=== PATIENT | male | born 1935 | race Caucasian/White ===

== ENCOUNTER → 2016-09-06 | Outpatient (CLI) | payer OTHER ==
[~2016-09-06] MED LIST: AMLO-114 PO; ASPI81TA28 PO; ATEN-173 PO; MULT-190 PO; PRD20 PO
[2016-09-06 19:17] LABS: BLOOD UREA NITROGEN 65 mg/dl (7-18); BUN/CREATININE RATIO 23.3 (10-20); CARBON DIOXIDE 27 mmol/L (21-32); CHLORIDE 105 mmol/L (98-107); GLUCOSE 103 mg/dl (70-99); PHOSPHORUS 3.4 mg/dl (2.5-4.9); SODIUM 140 mmol/L (136-145)
== END | disposition home or self-care (01) ==
LOC: C.LABMFLN 14:54
PROVIDERS: ATTEND Family Medicine
DX: M79.606 Pain in leg, unspecified (principal); N18.4 Chronic kidney disease, stage 4 (severe)

== ENCOUNTER → 2016-12-07 | Outpatient (CLI) | payer OTHER ==
[2016-12-07 13:57] LABS: BLOOD UREA NITROGEN 60 mg/dl (7-18); BUN/CREATININE RATIO 21.4 (10-20); CALCIUM 9.6 mg/dl (8.5-10.1); CARBON DIOXIDE 27 mmol/L (21-32); CHLORIDE 108 mmol/L (98-107); GLUCOSE 107 mg/dl (70-99); POTASSIUM 4.4 mmol/L (3.5-5.1); SODIUM 142 mmol/L (136-145)
[2016-12-07 13:58] LABS: PHOSPHORUS 3.3 mg/dl (2.5-4.9)
== END | disposition home or self-care (01) ==
LOC: C.LABMFLN 08:43
PROVIDERS: ATTEND Family Medicine
DX: N18.4 Chronic kidney disease, stage 4 (severe) (principal)

== ENCOUNTER → 2017-04-04 | Outpatient (CLI) | payer OTHER ==
[2017-04-04 13:07] LABS: BASO % 0.5 %; BASO ABS # 0.03 K/uL (0-0.2); COMPLETE YES; EOS % 3.5 %; HEMATOCRIT 36.6 % (42-52); IG% 0.3 %; LYMPH % 25.9 %; LYMPH ABS # 1.54 K/uL (1.2-3.4); MEAN CELL VOLUME 92.4 fL (80-100); MEAN CORPUSCULAR HEMOGLOBIN 30.6 pg (25-34); MEAN CORPUSCULAR HGB CONC 33.1 g/dl (32-36); MEAN PLATELET VOLUME 11.9 fL (7.4-10.4); MONO % 8.4 %; NEUT % 61.4 %; PLATELET COUNT 136 K/uL (130-400); RED BLOOD COUNT 3.96 M/uL (4.7-6.1); WHITE BLOOD COUNT 5.95 K/uL (4.8-10.8)
[2017-04-04 13:38] LABS: ALT/SGPT 56 U/L (12-78); AST/SGOT 23 U/L (15-37); BLOOD UREA NITROGEN 53 mg/dl (7-18); BUN/CREATININE RATIO 20.4 (10-20); CALCIUM 8.7 mg/dl (8.5-10.1); CARBON DIOXIDE 28 mmol/L (21-32); CHLORIDE 107 mmol/L (98-107); CREATININE 2.58 mg/dl (0.60-1.40); GLUCOSE 95 mg/dl (70-99); POTASSIUM 4.3 mmol/L (3.5-5.1); SODIUM 143 mmol/L (136-145)
[2017-04-04 13:43] LABS: ALKALINE PHOSPHATASE 57 U/L (45-117); CHOLESTEROL 144 mg/dl (0-200); CHOLESTEROL/HDL RATIO 3.6; HDL CHOLESTEROL 40 mg/dl; LDL CHOLESTEROL CALCULATED 65 mg/dl; TRIGLYCERIDES 193 mg/dl (0-150); VERY LOW DENSITY LIPOPROT CALC 39 mg/dl
== END | disposition home or self-care (01) ==
LOC: C.LABMFLN 08:15
PROVIDERS: ATTEND Family Medicine
DX: I12.9 Hypertensive chronic kidney disease with stage 1 through stage 4 chronic kidney disease, or unspecified chronic kidney disease (principal); N18.4 Chronic kidney disease, stage 4 (severe); E78.5 Hyperlipidemia, unspecified

== ENCOUNTER → 2017-06-02 | Outpatient (CLI) | payer OTHER ==
[2017-06-02 18:16] LABS: ALBUMIN 3.4 gm/dl (3.4-5.0); BASO % 0.3 %; BASO ABS # 0.02 K/uL (0-0.2); BLOOD UREA NITROGEN 50 mg/dl (7-18); CALCIUM 9.5 mg/dl (8.5-10.1); CARBON DIOXIDE 30 mmol/L (21-32); CREATININE 2.85 mg/dl (0.60-1.40); EOS % 2.7 %; EOS ABS # 0.19 K/uL (0-0.5); GLUCOSE 104 mg/dl (70-99); HEMATOCRIT 38.4 % (42-52); HEMOGLOBIN 12.4 g/dL (14.0-18.0); IG# 0.02 K/uL (0.00-0.02); LYMPH % 18.1 %; LYMPH ABS # 1.25 K/uL (1.2-3.4); MEAN CELL VOLUME 93.2 fL (80-100); MEAN CORPUSCULAR HEMOGLOBIN 30.1 pg (25-34); MEAN CORPUSCULAR HGB CONC 32.3 g/dl (32-36); MEAN PLATELET VOLUME 11.9 fL (7.4-10.4); MONO % 7.7 %; MONO ABS # 0.53 K/uL (0.11-0.59); NEUT % 70.9 %; PLATELET COUNT 158 K/uL (130-400); POTASSIUM 4.3 mmol/L (3.5-5.1); RED CELL DISTRIBUTION WIDTH CV 14.8 % (11.5-14.5); RED CELL DISTRIBUTION WIDTH SD 49.9 fL (36.4-46.3); SODIUM 141 mmol/L (136-145); WHITE BLOOD COUNT 6.91 K/uL (4.8-10.8)
[2017-06-02 18:30] LABS: PHOSPHORUS 3.8 mg/dl (2.5-4.9)
== END | disposition home or self-care (01) ==
LOC: C.LABMFLN 11:15
PROVIDERS: ATTEND Family Medicine
DX: R41.3 Other amnesia (principal); N18.4 Chronic kidney disease, stage 4 (severe)

== ENCOUNTER → 2017-09-02 | Outpatient (CLI) | payer OTHER ==
[2017-09-02 18:09] LABS: BASO % 0.3 %; BASO ABS # 0.02 K/uL (0-0.2); EOS ABS # 0.07 K/uL (0-0.5); HEMATOCRIT 33.6 % (42-52); IG# 0.02 K/uL (0.00-0.02); LYMPH % 14.2 %; LYMPH ABS # 0.99 K/uL (1.2-3.4); MEAN CELL VOLUME 91.3 fL (80-100); MEAN CORPUSCULAR HEMOGLOBIN 29.9 pg (25-34); MEAN CORPUSCULAR HGB CONC 32.7 g/dl (32-36); MONO % 5.8 %; NEUT % 78.4 %; NEUT ABS # 5.45 K/uL (1.4-6.5); PLATELET COUNT 162 K/uL (130-400); RED CELL DISTRIBUTION WIDTH CV 14.8 % (11.5-14.5); RED CELL DISTRIBUTION WIDTH SD 49.7 fL (36.4-46.3); WHITE BLOOD COUNT 6.95 K/uL (4.8-10.8)
[2017-09-02 18:32] LABS: ALBUMIN 3.2 gm/dl (3.4-5.0); BLOOD UREA NITROGEN 75 mg/dl (7-18); CALCIUM 8.6 mg/dl (8.5-10.1); CARBON DIOXIDE 23 mmol/L (21-32); CREATININE 3.33 mg/dl (0.60-1.40); GLUCOSE 95 mg/dl (70-99); POTASSIUM 4.3 mmol/L (3.5-5.1); SODIUM 138 mmol/L (136-145)
[2017-09-02 18:33] LABS: PHOSPHORUS 4.3 mg/dl (2.5-4.9)
== END ==
LOC: C.LABMFLN 15:20
PROVIDERS: ATTEND Family Medicine
DX: M31.6 Other giant cell arteritis (principal); E53.8 Deficiency of other specified B group vitamins; N18.4 Chronic kidney disease, stage 4 (severe)

== ENCOUNTER → 2017-12-22 | Outpatient (CLI) | payer OTHER ==
[~2017-12-22] MED LIST changes: -AMLO-114 PO; +AMLO10TA3 PO
[2017-12-22 18:25] LABS: ALBUMIN 3.3 gm/dl (3.4-5.0); BLOOD UREA NITROGEN 59 mg/dl (7-18); CALCIUM 8.3 mg/dl (8.5-10.1); CARBON DIOXIDE 22 mmol/L (21-32); GLUCOSE 102 mg/dl (70-99); PHOSPHORUS 3.6 mg/dl (2.5-4.9); POTASSIUM 4.2 mmol/L (3.5-5.1); SODIUM 139 mmol/L (136-145)
== END | disposition home or self-care (01) ==
LOC: C.LABMFLN 11:14
PROVIDERS: ATTEND Family Medicine
DX: N18.4 Chronic kidney disease, stage 4 (severe) (principal)

== ENCOUNTER 2021-08-06 08:29 | Inpatient (IN) ==
--- NOTE | 2021-07-02 12:04 | PAT Medication Instructions ---
Medication Instructions Date of Service July 02, 2021 Home Medications Medication Instructions Recorded albuterol sulfate 90 mcg/actuation 2 puffs INHALATION Q4H PRN #18 gm 12/12/18 aerosol inhaler prednisone 5 mg tablet 5 mg PO QAM #90 tab 12/12/18 albuterol sulfate 90 mcg/actuation aerosol inhaler 2 puffs INHALATION Q4H PRN prednisone 5 mg tablet 5 mg PO QAM aspirin 81 mg chewable tablet 81 mg PO HS carvedilol 3.125 mg tablet 3.125 mg PO BID acetaminophen 500 mg tablet 1,000 mg PO Q6H PRN calcium acetate(phosphat bind) 667 mg capsule 667 mg PO UD multivitamin with minerals 1 tab PO BID nifedipine 60 mg tablet,extended release 60 mg PO QAM rosuvastatin 5 mg tablet 5 mg PO QAM vitamin B complex and vitamin C no.20-folic acid 1 mg capsule (Triphrocaps) 1 cap PO QAM Continue as directed prednisone 5 mg tablet 5 mg PO QAM DO NOT take the morning of surgery calcium acetate(phosphat bind) 667 mg capsule 667 mg PO UD multivitamin with minerals 1 tab PO BID vitamin B complex and vitamin C no.20-folic acid 1 mg capsule (Triphrocaps) 1 cap PO QAM Take morning of surgery With a small sip of water, OTHERWISE NOTHING TO EAT OR DRINK AFTER MIDNIGHT: albuterol sulfate 90 mcg/actuation aerosol inhaler 2 puffs INHALATION Q4H PRN (use if needed; please bring with you to hospital day of surgery if possible) carvedilol 3.125 mg tablet 3.125 mg PO BID acetaminophen 500 mg tablet 1,000 mg PO Q6H PRN(okay to take up to 4 hours prior to surgery if needed) nifedipine 60 mg tablet,extended release 60 mg PO QAM rosuvastatin 5 mg tablet 5 mg PO QAM Take evening before surgery albuterol sulfate 90 mcg/actuation aerosol inhaler 2 puffs INHALATION Q4H PRN(if needed) aspirin 81 mg chewable tablet 81 mg PO HS (unless surgeon directed otherwise) carvedilol 3.125 mg tablet 3.125 mg PO BID acetaminophen 500 mg tablet 1,000 mg PO Q6H PRN(if needed) multivitamin with minerals 1 tab PO BID Other Notes If you have any questions please call us at [phone] or [phone] or [phone] or [phone]
--- NOTE | 2021-07-07 10:37 | Anesthesiology Consultation ---
Date of Service July 07, 2021 Assessment & Plan (1) Encounter for pre-operative examination: Chart Review Chart Review: Acceptable Risk for Surgery (pending PCP office visit 07/21/21, response re:anemia and preop Covid testing results ) and Patient seen in Pre Admission Testing Surgery date was changed to 08/06/21 (non dialysis day)- surgery will be on a - Awaiting PCP appt scheduled 07/21/21 (also wrote note to PCP regarding anemia) -Check PRP stat AM of surgery (pt on dialysis) -Due to comorbidities- patient is NOT a Same Day Joint candidate Has left a port in place - had been having issues with left AVF- left UE restriction Per PAT appt on 07/07/21, patient denies any recent travel or large group activities. No known Covid positive exposures or Covid related symptoms. No known Covid infection in the past 90 days. Pt is vaccinated for Covid. Preop Covid testing will need done 2-4 days prior to surgery = will await results. Educated on importance of self quarantining, social distancing and wearing mask in public for the patient one week prior to surgery and after Covid testing done Pt last seen by cardio 11/13/20= pt seen for routine follow up. History of asymptomatic frequent PVCs. History of Holter monitor that demonstrated approximately 8-9% of all beats were PVCs. Had echo that showed structurally normal heart. Been doing well with exception to fatigue. Frequent PVCsdiscussed the benign nature of these. Had an echo and is instructed normal heart. Patient is to be seen on a yearly basis. Left arm AVF 07/01/18= Done under MAC History Surgery Operation Date: 08/06/21 09:10 Proposed Procedures p Left Total Knee Arthroplasty - Black Figueredo MD Height/Weight Height: 5 ft 9 in Weight: 79.3 kg Allergies Allergy/AdvReac Type Severity Reaction Status Date / Time allopurinol Allergy Mild pain in Verified 07/01/21 09:43 joints losartan Allergy Mild impaired Verified 07/01/21 09:43 renal function hydralazine Allergy Unknown Unknown Verified 07/01/21 09:43 Medications Home Medications Medication Instructions Recorded Confirmed Last Taken albuterol sulfate 90 mcg/actuation 2 puffs INHALATION Q4H PRN #18 gm 12/12/18 07/01/21 Unknown aerosol inhaler prednisone 5 mg tablet 5 mg PO QAM #90 tab 12/12/18 07/01/21 Unknown aspirin 81 mg chewable tablet 81 mg PO HS tab 12/19/18 07/01/21 Unknown carvedilol 3.125 mg tablet 3.125 mg PO BID tab 07/15/20 07/01/21 Unknown acetaminophen 500 mg tablet 1,000 mg PO Q6H PRN 07/01/21 07/01/21 Unknown calcium acetate(phosphat bind) 667 667 mg PO UD 07/01/21 07/01/21 Unknown mg capsule multivitamin with minerals 1 tab PO BID 07/01/21 07/01/21 Unknown nifedipine 60 mg tablet,extended 60 mg PO QAM 07/01/21 07/01/21 Unknown release rosuvastatin 5 mg tablet 5 mg PO QAM 07/01/21 07/01/21 Unknown vitamin B complex and vitamin C 1 cap PO QAM 07/01/21 07/01/21 Unknown no.20-folic acid 1 mg capsule (Triphrocaps) Past Medical History Medical History (Updated 07/07/21 @ 17:33 by Kathleen Acosta PA-C) Anemia Balance problems Mild -due to old age per patient No walking device needed. No recent falls Deep vein thrombosis Many years ago- DVT and PE- specific unknown - currently takes aspirin-NO ISSUES SINCE Enlarged prostate with lower urinary tract symptoms (LUTS) ESRD (end stage renal disease) DIALYSIS TUESDAY/TUESDAY/TUESDAY [facility] Glaucoma Follows with eye doctor routinely Gout No recent issues Hearing loss NO AIDS Hyperlipidemia Hypertension Macular degeneration Memory difficulty Due to old age per patient- mild Multiple pulmonary nodules STABLE PER PT/SPOUSE Nephrolithiasis No recent issues Pulmonary embolism Many years ago - no issues since- on ASA PVCs (premature ventricular contractions) Frequent- follows with S Cardio Temporal arteritis HX- no recent issues Exercise / Class Metabolic Activity II 4-5 Yardwork/Stairs/Walk up hill (one flight of stairs - no chest pain or SOB - goes slow ) Past Family History Family History Unknown Hypertension Father Coronary heart disease Myocardial infarction Denies family history of Ovarian cancer Prostate cancer Breast cancer Colorectal cancer Past Surgical History Surgical History AV fistula LLE History of cataract surgery right and left History of colonoscopy History of endoscopic sinus surgery History of temporal artery biopsy S/P inguinal hernia repair Past Anesthesia History No Hx of Anesthesia Complications and No Family Hx of Anesthesia Complications History of PONV No Hx of PONV and No Hx of Motion Sickness Social History Smoking Status: Never smoker Do You Dip or Chew Tobacco: No Hx Alcohol Use: Yes Alcohol type: beer alcohol intake frequency: holidays/special occasions only Hx Substance Use: No substance use type: does not use Review of Systems Hx occ snoring. No witnessed apnea. No hx of sleep study Patient denies chest pain, shortness of breath, dyspnea on exertion, reflux, cough, wheezing, palpitations. No hx of seizures, stroke, NC. No hx of blood transfusions Physical Exam Vital Signs VITALS BP 175/84 (usually in 150s systolically per patient) P 61 TEMP 98.0 SP02 97% RESP 16 Constitutional no acute distress ENMT Mouth: no TMJ clicking Thyromental Distance: > or= 3.5 Finger Breadths (3.5) Mallampati Class: II (smaller airway ) Missing molars and side teeth Neck + limited neck extension (significant ) Respiratory normal respiratory effort; no respiratory distress Auscultation: lungs clear to auscultation bilaterally; no wheezes Cardiovascular Rate/Rhythm: regular rate and regular rhythm Heart Sounds: no murmur Vessels: no carotid bruit Musculoskeletal Spine: no pain with cervical ROM Extremities: extremities normal to inspection Psychiatric Orientation: alert Lab Results Anesthesia Preop Results Results Anesthesia Widget: WBC 6.54 K/uL (4.8-10.8) 07/07/21 Hgb 9.8 g/dL (14.0-18.0) L 07/07/21 Hct 30.8 % (42-52) L 07/07/21 Plt 151 K/uL (130-400) 07/07/21 Na 141 mmol/L (136-145) 07/07/21 K 3.8 mmol/L (3.5-5.1) 07/07/21 Cl 105 mmol/L (98-107) 07/07/21 CO2 26 mmol/L (21-32) 07/07/21 BUN 39 mg/dl (6-23) H 02/22/22 Creat 4.79 mg/dl (0.6-1.4) H* 07/07/21 Glucose Level 82 mg/dl (70-99(Fasting)) 07/07/21 PT 10.3 Seconds (9.0-12.0) 07/07/21 PTT 28.8 Seconds (21.0-31.0) 07/07/21 INR 1.0 (0.9-1.1) 07/07/21 Blood Type O Positive 07/07/21 Antibody Screen NEGATIVE 07/07/21 Lab Comments: Pt on dialysis Did write note to PCP re: anemia; also informed surgeon's office Testing Electrocardiogram Date: 07/07/21 Findings: + NSR @ (60bpm) Normal EKG per cardio. Chest X-Ray Date: 07/02/21 Findings: + NAD and + cardiomegaly (moderate) Echocardiogram Date: 09/26/17 EF: 65% LV Function: normal RWMA: + none Other Findings: + LVH (Mild/concentric) and + diastolic dysfunction (Grade 1) LA moderately enlarged. Mild AR. Mild TR. Proximal ascending thoracic aorta is mildly enlarged. It measures 4.2cm. Compared to prior study August 09, 2016- no significant change
--- NOTE | 2021-08-03 01:02 | History and Physical Report ---
CHIEF COMPLAINT: Bilateral knee pain and discomfort, left side greater than right. HISTORY OF PRESENT ILLNESS: The patient is an 86-year-old gentleman with end-stage renal disease, wh o has got a long history of bilateral knee pain and discomfort. We have been treating him over the y ears with injections, which have become less successful over time. He has had both steroid shots and viscosupplementation. He is having trouble getting around due to his knee pain. The left knee is a bit worse than the right. He cannot walk more than a couple blocks. He is trying to maintain an ac tive lifestyle and cannot do it. He would like to have his knees fixed. PAST MEDICAL HISTORY: Significant for, 1. End-stage renal disease, on dialysis. 2. Gout. 3. Elevated cholesterol. 4. Hypertension. 5. Macular degeneration. 6. Temporal arteritis. PAST SURGICAL HISTORY: Includes, 1. AV fistula placement. 2. Cataract surgery. 3. Biopsy from the temporal artery. 4. Inguinal hernia repair. ALLERGIES: ALLOPURINOL, LOSARTAN, HYDRALAZINE. SOCIAL HISTORY: An 86-year-old male. He is . He lives in [place]. He is retired. He was a teacher in the past. He does not smoke. FAMILY HISTORY: Noncontributory. REVIEW OF SYSTEMS: Significant for end-stage renal disease, on dialysis. No history of DVT or PE. No known bleeding problems. No chest pain or shortness of breath. PHYSICAL EXAMINATION: GENERAL: Shows a pleasant, thin, healthy-appearing, elderly male. He looks younger than his stated age. HEENT: Benign. NECK: Supple. No lymphadenopathy. LUNGS: Clear to auscultation. HEART: Regular rate and rhythm. ABDOMEN: Soft, nontender, nondistended. EXTREMITIES: Grossly neurovascularly intact except as follows: Examination of the left knee reveals a patient who ambulates with a little bit of a limp. He has got a varus deformity to his knee with a little bit of a varus thrust. His range of motion is about 10 degrees short of full extension to 1 15 degrees of flexion. Small knee effusion. No pain with hip motion. Examination of the right knee reveals a similar varus deformity. He is tender medially. Small knee effusion. Range is 5-120. N o instability. X-RAYS: X-rays of the left knee reviewed. It shows advanced left knee DJD. He has got complete los s of his medial joint space. He has got subchondral sclerosis. He has some tibiofemoral subluxation . The left knee is just slightly worse than the right, but very similar. He has started to destroy some of the bone on the medial side of his tibia on both sides. ASSESSMENT: An 86-year-old male with end-stage renal disease with advanced bilateral knee degenerati ve joint disease. He has failed conservative treatment. He would like to proceed with left knee rep lacement. PLAN: Will proceed with left knee replacement. The risks and benefits of this procedure were explai jarrell to the patient to include, but not limited to, DVT, PE, , infection, neurological injury, va scular injury, bleeding problems, pain, limited range of motion, stiffness, failure to relieve him sy mptoms, incomplete relief of symptoms, need for further surgery in the future, etc. The patient unde rstands and desires to proceed. Informed consent was obtained. We will likely put a little bit of vancomycin in the cement due to his medical comorbidities. He is planning to be discharged to home using [facility] home health program. Will need to work around his dialysis. Job ID: [id number]
[~2021-08-06 08:29] MED LIST changes: +ACETAMINOPHEN 500 MG TAB PO SCH; -AMLO10TA3 PO; -ASPI81TA28 PO; -ATEN-173 PO; +BUPIVACAINE 0.5 % 5 MG/1 ML PF 10ML VIAL ONE; +BUPIVACAINE LIPOSOME/PF 266 MG, BUPIVACAINE/EPINEPHRINE 50 ML, SODIUM CHLORIDE 0.9% 30 ... INFIL SCH; +FAMOTIDINE 20 MG TAB PO SCH; +GABAPENTIN 300 MG CAP PO SCH; +LR 60ML/HR IV SCH; +METOCLOPRAMIDE HCL 10 MG TABLET PO SCH; -MULT-190 PO; -PRD20 PO; +SODIUM CHLORIDE 0.9% 1000ML IV SCH; +TRANEXAMIC ACID 1,000 MG **IV Intra-op IV SCH; +ceFAZolin 2000MG 2,000 MG/15 ML SYR IV SCH
--- NOTE | 2021-08-06 08:56 | History & Physical Bridge Note ---
Date of Service August 06, 2021 History & Physical Bridge Note I have examined the patient, reviewed the History & Physical and in the interval since the performance of the History & Physical I have noted the following changes of clinical significance: no changes noted
[2021-08-06 09:34] LABS: Basophils # (auto) 0.02 K/uL (0-0.2); Basophils % (auto) 0.3 %; Eosinophils # (auto) 0.14 K/uL (0-0.5); Eosinophils % (auto) 2.3 %; Hematocrit (blood only) 29.1 % (42-52); Hemoglobin 9.4 g/dL (14.0-18.0); Immature Granulocytes # (auto) 0.01 K/uL (0.00-0.02); Immature Granulocytes % (auto) 0.2 %; Lymphocytes # (auto) 1.68 K/uL (1.2-3.4); Lymphocytes % (auto) 27.1 %; Mean Corpuscular Hemoglobin 32.8 pg (25-34); Mean Corpuscular Volume 101.4 fL (80-100); Mean Platelet Volume 11.1 fL (7.4-10.4); Monocytes % (auto) 9.7 %; Neutrophils # (auto) 3.76 K/uL (1.4-6.5); Neutrophils % (auto) 60.4 %; Platelet Count 144 K/uL (130-400); RDW Coefficient of Variation 13.8 % (11.5-14.5); RDW Standard Deviation 51.4 fL (36.4-46.3); Red Blood Count 2.87 M/uL (4.7-6.1); White Blood Count 6.21 K/uL (4.8-10.8)
[2021-08-06] MEDS ORDERED: fentaNYL citrate 100 MCG/2 ML VIAL ONE (09:36)
[2021-08-06] MEDS ORDERED: MIDAZOLAM HCL 1 MG/ML 2ML VIAL ONE (09:37)
[2021-08-06 09:55] LABS: Mean Corpuscular Hgb Conc 32.3 g/dL (32-36)
[2021-08-06 10:20] LABS: BUN Creatinine Ratio 5.9 (10-20); Calcium 7.9 mg/dl (8.5-10.1); Creatinine Clr Calc Pharmacy 12.1 ml/min; Est GFR (African American) 12.8 ml/min
[2021-08-06] MEDS ORDERED: ONDANSETRON INJ 2 MG/ML 2 ML VIAL IV PRN ×2 (11:01→14:28)
[2021-08-06] MEDS ORDERED: ATROPINE SULFATE 0.1 MG/ML 10ML SYR IV PRN (11:01)
[2021-08-06] MEDS ORDERED: ePHEDrine sulfate 50 MG/ML AMP IV PRN (11:01)
[2021-08-06] MEDS ORDERED: fentaNYL citrate 100 MCG/2 ML VIAL IV PRN (11:01)
[2021-08-06] MEDS ORDERED: SODIUM CHLORIDE 0.9% PF 50 ML VIAL ONE (11:24)
[2021-08-06] MEDS ORDERED: BUPIVACAINE/EPINEPHRINE 0.25% 1:200,000 30 ML VIAL ONE (11:24)
[2021-08-06] MEDS ORDERED: BUPIVACAINE LIPOSOME 1.3% 266 MG/20 ML VIAL ONE (11:25)
[2021-08-06] MEDS ORDERED: ONDANSETRON INJ 2 MG/ML 2 ML VIAL ONE (11:57)
[2021-08-06] MEDS ORDERED: PROPOFOL IV EMULSION 10 MG/ML 20 ML VIAL IV ONE (11:57)
[2021-08-06] MEDS ORDERED: ePHEDrine sulfate 50 MG/ML SYR ONE (13:01)
--- NOTE | 2021-08-06 13:33 | Operative Report ---
PG Post Operative Report Pre & Post Diagnosis Operation Date: 08/06/21 10:55 Pre-Op Diagnosis: Left knee degenerative joint disease Post-Op Diagnosis: Left knee degenerative joint disease I identified the patient and participated in the time-out.: Yes Procedure Operation Date: 08/06/21 10:55 Actual Procedures p Left Total Knee Replacement(Left) - Black Figueredo MD Surgeon Black Figueredo MD Crusher Loader Operator Bryce Folres PA-C Estimated Blood Loss 50 Findings Consistent with Post-Op Diagnosis Operative findings revealed advanced left knee tricompartment DJD. He had extensive grade 4 [id number] disease in all 3 compartments most severe in the medial side. Chronic ACL deficiency. Moderate-sized knee joint effusion. Fluids 200 cc Specimens Left knee sent for pathology Anesthesia Type Spinal MAC Complications none Disposition Accompanied Patient To Recovery: No Indications Patient is a 86-year-old fairly active gentleman has had a long history of bilateral knee pain discomfort. I been treating him over the years with injections which became less successful over time. He is having trouble having a degree of quality life due to his pain and elected to see with left total knee arthroplasty. Description of Procedure Operative implants consisted of: 1. Biomet Vanguard size 70 left posterior stabilized femoral component 2. Biomet size 75 tibial tray. 3. 12 mm posterior stabilized polyethylene insert. 4. 31 x 8 all polypatella. The patient was taken to the operating, identified, placed on the operating table supine position protectors were properly padded IV antibiotics tried by anesthesia team. A Crowell catheter was placed in sterile fashion. Left thigh tent was then placed. Left lower extremities and prepped and draped in usual sterile fashion. The left leg was elevated exsanguinated with use of an Esmarch and the tourniquet was set at 300 mmHg. An anterior approach to the left knee was then performed through longitudinal incision centered over the patella. Sharp dissection got through subcutaneous tissue down below the extensor mechanism. A medial parapatellar arthrotomy incision was made. Some subperiosteal dissection was carried out medially. The fat pad was resected beneath patella tendon. Lateral patellofemoral ligament was released. Patella subluxated laterally and the knee was flexed. The osteophyte taken off distal femur. The ACL and PCL were then released and distal femur. The ACL was absent. The tibia subluxated anteriorly. The external tibial alignment jig was then placed the interface the tibia and adjusted 14 mm medially. Proximal tibial cut was made essentially flush with the most deficient aspect medial tibial plateau. The tibia sized to a size 75. Attention drawn the femur. The distal femur during the sharp drop with intramedullary canal was suction. A left six 6 degree valgus cutting guide was placed. Distal femoral cutting block was pinned in place. Distal femoral cut was made to take an additional 3 mm of bone off distal femur. The femur was then sized to a size 70. The AP cutting block was pinned parallel to the epicondylar axis which was 4 degrees of external rotation. Anterior cut, anterior chamfer, posterior cut, posterior chamfer cuts were made. The box cutting guide was placed in just a slight lateral box cut was made. The knee was flexed. The remnants of the medial and lateral menisci were excised. The osteophytes taken off the posterior aspect of the femur. A trial femoral component was placed. The tibial tray was pinned in maximum external rotation and the drill and stem punch used to create defect in proximal tibia for the tibial tray. Knee was then trialed and the 12 mm insert fit most appropriately. Attention drawn the patella. The patella was cleaned of all soft tissues. Patella thickness measured 23 mm in thickness was cut down to the 14. Was sized to a size 31 patella. The lug holes were drilled for the 31 patella. The lateral osteophyte is moved. Patella button was placed. Knee was taken through range of motion patella tracked nicely with no thumbs test. Attention drawn to placing permanent components. All trial components were removed. Bone plug was placed in the distal femur limit blood loss. Double batch [place] G cement was mixed. A Biomet Vanguard size 70 left posterior stabilized femoral component, size 75 tibial tray, 12 mm posterior stabilized polyethylene insert, and a 31 x 8 all polypatella then cemented in place. The knee was brought out into full extension until cement hardened. A final cement check was then performed. The pericapsular tissue tissues were injected with total of 100 cc of combination of 20 cc of Exparel, 30 cc normal saline, 50 cc of quarter percent Marcaine with epinephrine. Patient did receive 1 g tranexamic acid. The tourniquet was then let down for turn time 55 minutes. Hemostasis reduced electrocautery. Extensor mechanism closed with combination 1 PDS suture #1 Vicryl suture in [id number] fashion. Extensor mechanism checked found to be intact with subcutaneous tissue then closed with 2 Dexon suture in a buried interrupted fashion skin was closed skin ilia. Leg was then cleaned and dried a sterile dressing was Xeroform, 4 x 4's, sterile cast padding, Ryan bandage were applied. Patient was then transferred to the recovery room in stable condition. Patient tolerated the procedure well and there were no complications. Bryce Flores, my physician litigation assistant, was present for the entire procedure. His assistance was essential and required for appropriate patient positioning, prepping and draping, surgical exposure, performing the technical details of the operation, placement the implants, closure of the wound, and placement of the sterile bandage. I attest to the content of the Intraoperative Record and any orders documented therein. Any exceptions are noted below.
--- NOTE | 2021-08-06 13:53 | XRay Report ---
XR knee LT 1 or 2V routine CLINICAL HISTORY: Surgical Post Op. Status post knee replacement COMPARISON STUDY: No previous studies for comparison. TECHNIQUE: 3 left knee views FINDINGS: The patient is status post total knee replacement. The prosthetic components are in anatomi c alignment with no acute abnormality seen. Air is present within the soft tissues from the procedure . Skin ilia are seen anteriorly. IMPRESSION: 1. Status post total knee replacement. ACT 112: Negative or not required by law. Electronically signed by: Suresh Lucero M.D. 08/06/2021 1:52 PM
--- NOTE | 2021-08-06 14:04 | Anesthesiology Progress Note ---
Date of Service August 06, 2021 Anesthesia Post Procedure Vital Signs Vital Signs: Temp Pulse Resp BP Pulse Ox 08/06/21 13:55 63 12 125/54 L 97 08/06/21 13:45 68 20 157/80 H 95 08/06/21 13:35 66 18 145/68 H 99 08/06/21 13:25 36.5 C 68 18 144/74 H 94 08/06/21 09:19 36.7 C 71 20 162/77 H 94 Pain Intensity Left Knee: Pain Intensity: 0 Transfer of Care Handoff Completed per policy Notes Mental Status: alert / awake / arousable and participated in evaluation Patient Amnestic to Procedure: Yes Nausea / Vomiting: adequately controlled Pain: adequately controlled Airway Patency, RR, SpO2: stable & adequate BP & HR: stable & adequate Hydration State: stable & adequate Neuraxial Anesthesia: was administered and sensory block is resolving Anesthetic Complications: no major complications apparent and Pt Satisfied with anesthetic care
[2021-08-06] MEDS ORDERED: NALOXONE HCL 0.4 MG/1 ML VIAL/CARP IV PRN (14:28)
[2021-08-06] MEDS ORDERED: METOCLOPRAMIDE HCL INJ 5 MG/ML 2 ML VIAL IV PRN (14:28)
[2021-08-06] MEDS ORDERED: TAMSULOSIN HCL 0.4 MG CAP PO PRN (14:28)
[2021-08-06] MEDS ORDERED: MAGNESIUM HYDROXIDE SUSP 30 ML UDC PO PRN (14:28)
[2021-08-06] MEDS ORDERED: HYDROmorphone INJ 0.5 MG/0.5 ML SYR IV PRN ×2 (14:28→18:13)
[2021-08-06] MEDS ORDERED: bisacodyL 10 MG SUPP PR PRN (14:28)
[2021-08-06] MEDS ORDERED: ALBUTEROL HFA 8 GM INHALER INH PRN (14:28)
[2021-08-06] MEDS ORDERED: oxyCODONE HCL IR 5 MG TAB (IMMEDIATE RELEASE) PO PRN (14:28)
[2021-08-06] MEDS ORDERED: ALUMINUM/MAGNESIUM SUSP 30 ML UDC PO PRN (14:28)
--- NOTE | 2021-08-06 15:22 | Hospitalist Consultation ---
Date of Consultation August 06, 2021 Assessment & Plan (1) Degenerative arthritis of knee, bilateral: (2) ESRD (end stage renal disease): (3) AV fistula: (4) Balance problems: (5) Hypertension: (6) Hyperlipidemia: Supervising Physician Co-Signing Physician Notes I personally examined the patient and verified all fernandez points of history and exam, discussed case, and agree with decision making with Zari ARAYA feeling ok no complaints, family would very much like him to go to [facility] for rehab because they have HD there. he wonders what time he'll have HD tomorrow vitals noted nad heent nc at mmm somewhat SITKA but able hear well enough w loud conversational voice breathing unlabored no accessory muscles ESRD - for HD tomorrow, nephro consulted, otherwise as above History of Present Illness Attending Physician: Black Figueredo MD History of Present Illness 86 YOM with POD #0 from Left total knee replacement- by Dr. Figueredo, under spinal anesthesia with EBL of 50ml. Hospitalist service was consulted for medical management of this ESRD patient that gets dialysis MWF. Patient also has medical history of AOCD, BPH with LUTS, Gout, HLD, HTN, Hx of PE noting back prior to 2016- (as far as able to chart review) and remains on ASA, GCA. The patient has temporary dialysis catheter to his left SCL which he uses for dialysis until his left AV fistula matures. He follows with Dr. Miller for Nephrology- [facility]; and Dr. Wilkerson for Vascular. The patient was evaluated in PACU, and is briskly awake and starting to have some return of his sensation to his lower legs. His vital signs were reviewed and labs from today reviewed. Recommendations - Nephrology consult placed- he gets dialysis MWF - Pain controlled tiered- follow dosing with ESRD- Rescue Narcan is available - Continue to follow electrolytes and renal function - K 3.0 post operative and his renal function is currently at baseline - DVT- TEDS, SCDs, ASA- as you have Allergies Allergy/AdvReac Type Severity Reaction Status Date / Time allopurinol Allergy Mild pain in Verified 08/06/21 09:23 joints losartan Allergy Mild impaired Verified 08/06/21 09:23 renal function hydralazine Allergy Unknown Unknown Verified 08/06/21 09:23 Home Medications Medication Instructions Recorded Confirmed Type albuterol sulfate 90 mcg/actuation 2 puffs INHALATION Q4H PRN #18 gm 12/12/18 08/06/21 Rx aerosol inhaler prednisone 5 mg tablet 5 mg PO QAM #90 tab 12/12/18 08/06/21 Rx aspirin 81 mg chewable tablet 81 mg PO HS tab 12/19/18 08/06/21 History carvedilol 3.125 mg tablet 3.125 mg PO BID tab 07/15/20 08/06/21 History acetaminophen 500 mg tablet 1,000 mg PO Q6H PRN 07/01/21 08/06/21 History calcium acetate(phosphat bind) 667 667 mg PO UD 07/01/21 08/06/21 History mg capsule multivitamin with minerals 1 tab PO BID 07/01/21 08/06/21 History nifedipine 60 mg tablet,extended 60 mg PO QAM 07/01/21 08/06/21 History release rosuvastatin 5 mg tablet 5 mg PO QAM 07/01/21 08/06/21 History Patient History Medical History Anemia Balance problems Mild -due to old age per patient No walking device needed. No recent falls Deep vein thrombosis Many years ago- DVT and PE- specific unknown - currently takes aspirin-NO ISSUES SINCE Enlarged prostate with lower urinary tract symptoms (LUTS) ESRD (end stage renal disease) DIALYSIS TUESDAY/TUESDAY/TUESDAY [facility]ON[facility] Glaucoma Follows with eye doctor routinely Gout Hearing loss NO AIDES Hyperlipidemia Hypertension Macular degeneration Memory difficulty Due to old age per patient- mild Multiple pulmonary nodules STABLE PER PT/SPOUSE Nephrolithiasis Pulmonary embolism Many years ago - no issues since- on ASA PVCs (premature ventricular contractions) Frequent- follows with [facility] Cardio Temporal arteritis HX- no recent issues Surgical History AV fistula LUE History of cataract surgery right and left History of colonoscopy History of endoscopic sinus surgery History of temporal artery biopsy S/P inguinal hernia repair Family History Unknown Hypertension Father Coronary heart disease Myocardial infarction Denies family history of Ovarian cancer Prostate cancer Breast cancer Colorectal cancer Social History Smoking Status: Never smoker Second Hand Exposure: No; Do You Dip or Chew Tobacco: No; Hx Alcohol Use: Yes Alcohol type: beer Hx Substance Use: No Preferred Language: Swiss Communication Ability: Effective Visual Impairment: Partially Limited Hearing Ability: Hard of Hearing Winter Sports Manager Required: No Beliefs That Will Affect Care: None marital status: Current Living Situation: Spouse Current Living Situation Comment: LIVES WITH SPOUSE RUBI current occupational status: retired current occupation: teacher How many Children do You have: 1 Other Information That Helps Us Care for You: No Feels Safe at Home: Yes Safety Concerns: Feels Safe At This Time Childhood Exposure to Second-Hand Smoke: No caffeine: Yes (coffee) Dental Care, Regularly: Yes Physical Activity Frequency: Does not Exercise Seatbelt Use: always Sunscreen Use: No Do you think of yourself as: straight/heterosexual Assistive Devices: Glasses Review of Systems Review of Systems: REVIEW OF SYSTEMS: Constitutional: No fever, sweats or chills Eyes: No diplopia, no worsening or blurred vision ENT: (+) difficulty hearing, no trouble swallowing Respiratory: No cough, sputum, dyspnea at rest or on exertion Cardiovascular: No chest pain, tightness or palpitations Abdomen: No pain, nausea, vomiting, diarrhea or constipation Musculoskeletal: (+) joint pain, calf pain, swelling Neurologic: (+) balance problem, No weakness, numbness/tingling, or balance problems Psychiatric: No anxiety or depression Skin: No rash or itch Physical Exam Physical Exam: PHYSICAL EXAM: General: awake, alert, no apparent distress- pain currently controlled and sensation starting to return Head: Normocephalic, atraumatic ENT: PERRL, EOMI, no pharyngeal exudate, mucous membranes dry Neuro: AAO x 3, speech clear and appropriate, strength intact bilaterally 5/5, sensation intact and equal all extremities and dermatomes, no pronator drift Chest: equal rise and fall of the chest, no accessory muscle use, no heaves or thrills, Clear to auscultation, on room air, Cardiac: Regular rate and rhythm, telemetry reviewed, skin warm dry, cap refill <3 seconds, peripheral pulses +2 no JVD, no murmur, no edema, left SCL temp dialysis line with dressing intact and clean- left brachial AV fistula with good thrill and bruit. GI: NABS x 4 quadrants, soft, nontender to palpation, no rebound, guarding or tenderness :Crowell to gravity Extremities: Normal inspection, no peripheral edema or erythema, calfs nontender to palpation Psych: Normal mood and affect Skin: no rash or erythema Results & Data Results & Data ([facility]) Vital Signs (Past 12 Hours) Vital Signs Temp Pulse Resp BP Pulse Ox 08/06/21 14:55 74 18 143/68 H 96 08/06/21 14:40 65 17 137/70 95 08/06/21 14:25 63 18 138/60 98 08/06/21 14:15 62 13 136/63 95 08/06/21 14:05 36.4 C L 64 20 140/68 97 08/06/21 13:55 63 12 125/54 L 97 08/06/21 13:45 68 20 157/80 H 95 08/06/21 13:35 66 18 145/68 H 99 08/06/21 13:25 36.5 C 68 18 144/74 H 94 08/06/21 09:19 36.7 C 71 20 162/77 H 94 Laboratory Results Abnormal lab results 08/06/21 08/06/21 Range/Units 09:17 09:17 RBC 2.87 L (4.7-6.1) M/uL Hgb 9.4 L (14.0-18.0) g/dL Hct 29.1 L (42-52) % MCV 101.4 H (80-100) fL RDW Std Deviation 51.4 H (36.4-46.3) fL MPV 11.1 H (7.4-10.4) fL Luce # (Auto) 0.60 H (0.11-0.59) K/uL Sodium 135 L (136-145) mmol/L Potassium 3.0 L (3.5-5.1) mmol/L BUN 27 H (6-23) mg/dl Creatinine 4.55 H* (0.6-1.4) mg/dl BUN/Creatinine Ratio 5.9 L (10-20) Calcium 7.9 L (8.5-10.1) mg/dl Diagnostic Findings Knee X-Ray 08/06/21 13:25 XR knee LT 1 or 2V routine CLINICAL HISTORY: Surgical Post Op. Status post knee replacement COMPARISON STUDY: No previous studies for comparison. TECHNIQUE: 3 left knee views FINDINGS: The patient is status post total knee replacement. The prosthetic components are in anatomic alignment with no acute abnormality seen. Air is pr esent within the soft tissues from the procedure. Skin ilia are seen anteriorly. IMPRESSION: 1. Status post total knee replacement. ACT 112: Negative or not required by law. Electronically signed by: Suresh Lucero M.D. 08/06/2021 1:52 PM Medications Administered Acetaminophen (Acetaminophen 500 Mg Tab) 1,000 mg PO PREOP MIGDALIA Stop: 08/06/21 18:00 Last Admin: 08/06/21 09:51 Dose: 1,000 mg Documented by: [id number] Famotidine (Famotidine 20 Mg Tab) 20 mg PO PREOP MIGDALIA Stop: 08/06/21 18:00 Last Admin: 08/06/21 09:52 Dose: 20 mg Documented by: [id number] Gabapentin (Gabapentin 300 Mg Cap) 300 mg PO PREOP MIGDALIA Stop: 08/06/21 18:00 Last Admin: 08/06/21 09:52 Dose: 300 mg Documented by: [id number] Sodium Chloride (Nss 1000ml) 1,000 mls @ 15 mls/hr IV .Q24H MIGDALIA Stop: 08/07/21 05:59 Last Infusion: 08/06/21 11:41 Dose: 0 mls/hr Documented by: [id number] Admin: 08/06/21 09:31 Dose: 15 mls/hr Documented by: [id number] Lactated Ringer's (Lr) 1,000 mls @ 60 mls/hr IV .[id number] MIGDALIA Stop: 08/06/21 22:39 Last Admin: 08/06/21 09:53 Dose: Not Given Documented by: [id number] Cefazolin Sodium (Ancef 2000mg) 2,000 mg in 15 mls @ 3.75 mls/min IV PREOP MIGDALIA; Protocol Stop: 08/06/21 18:00 Last Admin: 08/06/21 11:41 Dose: 3.75 mls/min Documented by: [id number] Bupivacaine Liposome 266 mg/Bupivacaine HCl/Epinephrine Bitart 50 ml/ Sodium Chloride 30 ml/ Syringe 100 mls @ 100 mls/hr INFIL PREOP MIGDALIA Stop: 08/06/21 18:00 Last Admin: 08/06/21 12:43 Dose: 100 mls/hr Documented by: [id number] Tranexamic Acid (Tranexamic Acid / 0.7% Nacl) 1,000 mg in 100 mls @ 600 mls/hr IV TODAY@0600 [facility] Stop: 08/06/21 18:00 Last Admin: 08/06/21 12:41 Dose: 600 mls/hr Documented by: [id number] Metoclopramide HCl (Metoclopramide Hcl 10 Mg Tablet) 10 mg PO PREOP MIGDALIA Stop: 08/06/21 18:00 Last Admin: 08/06/21 09:52 Dose: 10 mg Documented by: [id number] Discontinued Medications Bupivacaine HCl/Epinephrine Bitart (Bupivacaine/Epinephrine 0.25% 1:200,000 30 M l Vial) Confirm Administered Dose 60 ml .ROUTE .STK-MED ONE Stop: 08/06/21 11:25 Last Admin: 08/06/21 12:22 Dose: Not Given Documented by: [id number] Bupivacaine Liposome (Bupivacaine Liposome 1.3% 266 Mg/20 Ml Vial) Confirm Administered Dose 266 mg .ROUTE .STK-MED ONE Stop: 08/06/21 11:26 Last Admin: 08/06/21 12:22 Dose: Not Given Documented by: [id number] Sodium Chloride (Sodium Chloride 0.9% Pf 50 Ml Vial) Confirm Administered Dose 50 ml .ROUTE .STK-MED ONE Stop: 08/06/21 11:25 Last Admin: 08/06/21 12:22 Dose: Not Given Documented by: [id number] PG Care Time/CCT Total # of Minutes Spent Total Time Spent with Patient: Total time spent is greater than 50% in coordination of care (as documented) at patient's floor/unit and/or counseling patient: Coding Level of Care Code 08503 Office/OBS Consult Lvl 3 Diagnoses Degenerative arthritis of knee, bilateral M17.0 AV fistula I77.0 Balance problems R26.89 Hypertension I10 Hyperlipidemia E78.5 ESRD (end stage renal disease) N18.6
[2021-08-06] MEDS ORDERED: CALCIUM ACETATE 667 MG CAP/TAB PO PRN (16:06)
[2021-08-06] MEDS: CALCIUM ACETATE 667 MG CAP/TAB PO SCH (16:43)
[2021-08-06] MEDS: ASCORBIC ACID 500 MG TAB PO SCH (17:35)
[2021-08-06] MEDS: ACETAMINOPHEN 500 MG TAB PO SCH ×2 (17:35→21:23)
[2021-08-06] MEDS ORDERED: TRANEXAMIC ACID / 0.7% NACL 1,000 MG/100 ML BAG IV SCH (19:30)
[2021-08-06] MEDS: DOCUSATE SODIUM 100 MG CAP PO SCH (21:24)
[2021-08-06] MEDS: ASPIRIN 81 MG ECTAB PO SCH (21:24)
[2021-08-06] MEDS: SENNA 8.6 MG TAB PO SCH (21:24)
[2021-08-06] MEDS: carvediloL 3.125 MG TAB PO SCH (21:25)
[2021-08-06] MEDS: CEROVITE ADV FORMULA TAB PO SCH (21:49)
[2021-08-06] MEDS: SODIUM CHLORIDE 0.9% 1000ML 1,000 ML IV SCH (21:51)
[2021-08-06] MEDS: ceFAZolin 1000MG 1,000 MG/7.5 ML SYR IV SCH (21:53)
[2021-08-06] MEDS: TAPENTADOL HCL ER 50 MG TABCR PO SCH (22:00)
[2021-08-07] MEDS: SODIUM CHLORIDE 0.9% 1000ML 1,000 ML IV SCH (02:23)
[2021-08-07] MEDS: ceFAZolin 1000MG 1,000 MG/7.5 ML SYR IV SCH (05:40)
[2021-08-07] MEDS: ACETAMINOPHEN 500 MG TAB PO SCH ×3 (06:21→22:33)
[2021-08-07] MEDS: CALCIUM ACETATE 667 MG CAP/TAB PO SCH ×3 (06:21→17:30)
[2021-08-07 07:28] LABS: Hematocrit (blood only) 23.7 % (42-52); Hemoglobin 7.8 g/dL (14.0-18.0); Mean Corpuscular Hemoglobin 33.2 pg (25-34); Mean Corpuscular Hgb Conc 32.9 g/dL (32-36); Mean Corpuscular Volume 100.9 fL (80-100); Mean Platelet Volume 11.6 fL (7.4-10.4); Platelet Count 122 K/uL (130-400); RDW Standard Deviation 51.5 fL (36.4-46.3); Red Blood Count 2.35 M/uL (4.7-6.1); White Blood Count 5.83 K/uL (4.8-10.8)
[2021-08-07] MEDS: ROSUVASTATIN CALCIUM 5 MG TAB PO SCH (07:36)
[2021-08-07] MEDS: ASPIRIN 81 MG ECTAB PO SCH ×2 (07:36→22:31)
[2021-08-07] MEDS: NIFEdipine EXTENDED REL 30 MG TABCR PO SCH (07:36)
[2021-08-07] MEDS: ASCORBIC ACID 500 MG TAB PO SCH ×2 (07:36→17:30)
[2021-08-07] MEDS: CEROVITE ADV FORMULA TAB PO SCH ×2 (07:37→22:30)
[2021-08-07] MEDS: DOCUSATE SODIUM 100 MG CAP PO SCH ×2 (07:37→22:30)
[2021-08-07] MEDS: TAPENTADOL HCL ER 50 MG TABCR PO SCH (07:42)
[2021-08-07] MEDS ORDERED: dexAMETHasone 10 MG in SYRINGE 0 ML IV SCH (08:00)
[2021-08-07 08:05] LABS: BUN Creatinine Ratio 5.8 (10-20); Calcium 7.1 mg/dl (8.5-10.1); Creatinine Clr Calc Pharmacy 8.7 ml/min; Est GFR (African American) 8.6 ml/min; Est GFR (Non-African American) 7.4 ml/min
[2021-08-07] MEDS: carvediloL 3.125 MG TAB PO SCH ×2 (08:15→22:32)
--- NOTE | 2021-08-07 08:35 | Progress Notes ---
DATE OF SERVICE: 08/07/2021. SUBJECTIVE: An 86-year-old gentleman with multiple comorbidities including end-stage renal disease, now postoperative day 1 from a left knee replacement. He is doing pretty well this morning. He does not have much pain. He had a reasonably good night. No chest pain or shortness of breath. OBJECTIVE: VITAL SIGNS: Temperature 36.9. Vital signs are stable. GENERAL: Shows a pleasant, elderly male. He is lying in bed, looks pretty comfortable. EXTREMITIES: Examination of the left leg reveals the leg to be well aligned. Dressing is clean, dry and intact. He can dorsiflex and plantarflex his foot appropriately. He is neurologically intact. LABORATORY DATA: Hemoglobin 7.8. Hematocrit 23.7. Electrolytes are pending. ASSESSMENT: An 86-year-old gentleman, postoperative day 1 from a left knee replacement, doing reason ably well. He has got end-stage renal disease and chronic anemia as a result. PLAN: 1. DVT prophylaxis includes thigh-high TEDs, SCDs, and aspirin. 2. PT/OT. He can weight bear as tolerated. Left total knee protocol. 3. Pain control, doing well with current pain regimen. 4. End-stage renal disease. He is hopefully getting dialyzed today. 5. Medical management as per the medicine service. 6. Anemia. He is chronically anemic. His hemoglobin and hematocrit are a bit low, but he is asympt omatic. We will follow this unless medicine thinks he needs blood. This is obviously a difficult si tuation considering his renal function. Possibility that they may be able to give him some erythropo ietin. 7. Disposition: He is hoping to be discharged to [facility] for a brief rehab stay. Job ID: [id number]
[2021-08-07] MEDS ORDERED: MULTIVITAMIN TAB PO SCH (09:00)
[2021-08-07] MEDS ORDERED: predniSONE 5 MG TAB PO SCH (09:00)
[2021-08-07] MEDS ORDERED: SODIUM CHLORIDE 0.9% 1000ML 1,000 ML IV PRN (09:28)
[2021-08-07] MEDS ORDERED: EPOETIN ALFA 10,000 UNITS in SYRINGE 0 ML IV SCH (10:45)
[2021-08-07] MEDS ORDERED: EPOETIN ALFA 10,000 UNITS/ML VIAL IV ONE (11:30)
--- NOTE | 2021-08-07 12:08 | Consultation Report ---
NEPHROLOGY CONSULTATION NOTE DATE OF SERVICE: 08/07/2021 REASON FOR CONSULTATION: Dialysis patient admitted with elective left total knee replacement. HISTORY OF PRESENT ILLNESS: The patient is an 86-year-old male who gets chronic in-center hemodialys is Tuesday, Tuesday, Tuesday and was admitted for elective left knee replacement, which he had yester day without any major complications. At the time of my examination, he was getting dialysis. He is getting pain medication. Hemoglobin dropped a little bit post-surgery; from 9.4, it is down to 7.8 a t this time and he is supposed to get blood transfusion. Vital signs appear reasonable. PAST MEDICAL AND SURGICAL HISTORY: Includes ESRD, on chronic hemodialysis Tuesday, Tuesday, Tuesday, hypertension, hyperlipidemia, history of DVT many years ago as well as PE, enlarged prostate with lo wer urinary tract symptoms, some hearing loss, multiple pulmonary nodules - deemed as stable, history of PVCs, history of temporal arteritis, gout. MEDICATIONS: Home medication list was reviewed in detail and includes albuterol, prednisone, aspirin , carvedilol, Tylenol, calcium acetate for phosphorus binding, multivitamin, nifedipine 60 daily, ros uvastatin 5 daily. ALLERGIES: List was reviewed in detail and is as per the reconciliation list. SOCIAL HISTORY: The patient is , never smoked. He is a retired school crossing guard. He lives wit h his spouse. Does not use any oxygen or walking aid at this time. REVIEW OF SYSTEMS: Twelve systems reviewed and are otherwise negative. Denies any major pain, but s ome discomfort as expected in the surgical knee. PHYSICAL EXAMINATION: VITAL SIGNS: Blood pressure 101/58, pulse rate 60, temperature 37, and 91% on room air. HEENT: Mucous membrane is moist. NECK: Supple. No jugular venous distention. CHEST: Bilaterally clear to auscultation. CARDIOVASCULAR: S1 and S2, regular. ABDOMEN: Soft, nontender. EXTREMITIES: Show no edema. He has a newly revised AV fistula in his left forearm with good bruit a nd thrill, a tunneled catheter on the left side. NEUROLOGIC: Awake, alert and oriented. Normal speech. LABORATORY TEST: Hemoglobin dropped to 7.8, WBC count 5.8, platelet 122. Creatinine 6.3, BUN 37, sod ium 137, potassium 3.0, glucose 106, calcium 7.1. ASSESSMENT AND PLAN: An 86-year-old male with end-stage renal disease, on chronic hemodialysis , Tuesday, Tuesday, now admitted for elective knee replacement, which he had yesterday. End-stage renal disease: He is getting dialysis at the time of my interview. So far, no major compli cation. His potassium is quite low at 3.0, so we will do the last 2 hours of dialysis on a 4K bath a nd earlier he had a 3K bath. No heparin today. We will also give 20,000 EPO for the anemia. Orthop edic surgery feels he needs to have blood transfusion, which they will be giving. Thank you very much for the consult. Job ID: [id number]
[2021-08-07] MEDS ORDERED: HYDROCORTISONE SOD 50 MG in SYRINGE 0 ML IV SCH (12:30)
--- NOTE | 2021-08-07 12:32 | Hospitalist Progress Note ---
Date of Service August 07, 2021 Assessment & Plan (1) S/P total knee arthroplasty: Plan: - Patient received spinal anesthesia and had an uneventful perioperative course - Is s/p elective left TKA by Dr. Figueredo on 08/06 - Recommend postoperative pain management, PT/OT, incentive spirometry, continued perioperative antibiotic prophylaxis, and DVT prophylaxisat discreti on of primary team - Recommend removal of Crowell catheter which I have orderedto encourage ambulation - Patient lives in a 3 story home with his and is hoping to be discharged to [facility] (2) Anemia: Plan: - acute on chronic. Do not suspect significant blood loss from surgery (as EBL only 20cc) - anemia likely multifactorial. Post-surgical state likely contributing. Also, Labs drawn PREdialysis so likely dilutional component. Does have h/o B12 def in addition to ESRD - procrit given with Dialysis today - patient asymptomatic and although goal hgb >/=9.0 for adequate wound healing post-op, he is completely asymptomatic and HD stable - repeat H/H this afternoon after dialysis. If hgb remains <8.0, will transfuse. - spoke with Nephro regarding need to change dialysis parameters given potential need for blood products-- no changes needed at this time - obtain Iron studies and updated b12. - continue to trend labs (3) ESRD (end stage renal disease): Plan: - follows [facility]. Receives dialysis MW in [place] - Nephrology following for fluids mgmt - hopeful to be discharged to [facility] (and I was notified that his dialysis can be continued there starting Tuesday) (4) Hypokalemia: Plan: - although patient with ESRD, he is NOT hyperkalemia and is actually slightly low (3.0). - hold off on supplementation as Nephrology had ordered a Kbath with dialysis today - follow up labs to trend (5) Chronic steroid use: Plan: - takes 5mg chronically for PMR - did not receive Steroid challenge perioperative. Did get decadron but this has no mineralocorticoid affect - Solu-cortef today with oral prednisone taper to start tomorrow (6) Hypertension: Plan: - continue Procardia and Coreg as prior to hosptialization Plan: will continue to follow along with this patient. Thank you for the consultation and allowing us to participate in the care of this patient Admission and Anticipated Discharge Date Admission Date: August 06, 2021 Subjective Patient seen on daily rounds today while in dialysis. He is POD #1 s/p elective left TKA. Pain is adequately controlled. Has oxycodone as needed for pain but has not utilized this. Hemoglobin did drop to 7.8 today. Was 9.4 preoperatively. He is hemodynamically stable. He denies dizziness, lightheadedness, shortness of breath, chest pain, palpitations. Has never required a blood transfusion in the past. Has not yet been out of bed with therapy given scheduled dialysis today. Patient noted to be on chronic steroids. Did not receive steroid challenge intraoperatively. This morning, is hemodynamically stable. Blood sugar is stable. Patient lives in a 3 story home with his . Considering [facility] upon discharge. Review of Systems Review of Systems: All systems reviewed and are unremarkable except as noted in HPI and below Denies fevers, chills, headache, nasal congestion, sore throat, cough, chest pain, shortness of breath, palpitations, orthopnea, PND, abdominal pain, nausea, vomiting, diarrhea, constipation, dysuria, hematuria, frequency, back pain, joint pain or swelling, easy bruising or bleeding, skin lesions or rashes. Physical Exam Physical Exam: General: Resting comfortably in his hospital bed. Currently receiving dialysis. NAD. HEENT: Head is AT/NC. Buccal mucosa is moist and pink Neck: No JVD. Negative hepatojugular reflex Cardiac: RRR with 1/6 CHERI. Port noted to left chest wall. Lungs: CTA without W/R/R Abdomen: Normoactive X4. Soft and nontender in all quadrants. Extremities: Ryan wrap to left knee. Distal pulses to the bilateral lower ext remities are intact and symmetrical. Capillary refill +2. Negative Homans' sign. No calf tenderness. Neuro: A&O X4. Cranial nerves II through XII are grossly intact. No focal neuro deficits Skin: No obvious skin lesions or rashes Psych: Appropriate affect. Pleasant and cooperative Results & Data Results & Data ([facility]) Vital Signs (Past 12 Hours) Vital Signs Temp Pulse Pulse Pulse Resp BP BP 08/07/21 12:00 71 109/61 08/07/21 11:40 73 101/63 08/07/21 11:20 65 113/60 08/07/21 11:00 70 110/65 08/07/21 10:40 68 101/58 L 03/25/22 10:20 68 114/59 L 08/07/21 10:00 66 117/66 08/07/21 09:40 68 106/54 L 08/07/21 09:27 67 120/69 08/07/21 09:19 37 C 69 08/07/21 08:14 36.9 C 80 16 119/43 L 08/07/21 04:32 36.9 C 77 17 134/65 Pulse Ox 08/07/21 12:00 08/07/21 11:40 08/07/21 11:20 08/07/21 11:00 08/07/21 10:40 08/07/21 10:20 08/07/21 10:00 08/07/21 09:40 08/07/21 09:27 08/07/21 09:19 08/07/21 08:14 91 08/07/21 04:32 92 Laboratory Results 08/07/21 06:41 08/07/21 06:41 PG Care Time/CCT Total # of Minutes Spent Total Time Spent with Patient: Total time spent is greater than 50% in coordination of care (as documented) at patient's floor/unit and/or counseling patient: Coding Level of Care Code 85344 Inpt Consult Level 4 Diagnoses Anemia D64.9 ESRD (end stage renal disease) N18.6 Hypokalemia E87.6 Chronic steroid use Hypertension I10 S/P total knee arthroplasty Z96.659
[2021-08-07 14:33] LABS: Hematocrit (blood only) 27.5 % (42-52); Hemoglobin 9.2 g/dL (14.0-18.0)
[2021-08-07 15:13] LABS: Ferritin 984.7 ng/ml (8-388)
[2021-08-07] MEDS ORDERED: HYDROCORTISONE SOD 50 MG in SYRINGE 0 ML IV ONE (19:00)
[2021-08-07] MEDS: traMADol HCL 50 MG TABLET PO PRN (22:29)
[2021-08-07] MEDS: SENNA 8.6 MG TAB PO SCH (22:31)
[2021-08-08] MEDS: ACETAMINOPHEN 500 MG TAB PO SCH ×4 (04:55→20:35)
[2021-08-08 07:17] LABS: Basophils # (auto) 0.01 K/uL (0-0.2); Basophils % (auto) 0.1 %; Eosinophils # (auto) 0.02 K/uL (0-0.5); Eosinophils % (auto) 0.3 %; Hematocrit (blood only) 26.5 % (42-52); Hemoglobin 8.8 g/dL (14.0-18.0); Immature Granulocytes # (auto) 0.04 K/uL (0.00-0.02); Immature Granulocytes % (auto) 0.6 %; Lymphocytes # (auto) 0.97 K/uL (1.2-3.4); Lymphocytes % (auto) 14.1 %; Mean Corpuscular Hemoglobin 33.5 pg (25-34); Mean Corpuscular Hgb Conc 33.2 g/dL (32-36); Mean Corpuscular Volume 100.8 fL (80-100); Mean Platelet Volume 10.7 fL (7.4-10.4); Monocytes # (auto) 0.69 K/uL (0.11-0.59); Neutrophils # (auto) 5.17 K/uL (1.4-6.5); Neutrophils % (auto) 74.9 %; Platelet Count 141 K/uL (130-400); RDW Coefficient of Variation 14.2 % (11.5-14.5); RDW Standard Deviation 52.1 fL (36.4-46.3); Red Blood Count 2.63 M/uL (4.7-6.1)
[2021-08-08 07:46] LABS: BUN Creatinine Ratio 6.4 (10-20); Calcium 7.9 mg/dl (8.5-10.1); Creatinine Clr Calc Pharmacy 9.8 ml/min; Est GFR (African American) 9.9 ml/min; Est GFR (Non-African American) 8.6 ml/min; Magnesium 1.7 mg/dl (1.7-2.4); Potassium 3.3 mmol/L (3.5-5.1)
[2021-08-08] MEDS: carvediloL 3.125 MG TAB PO SCH ×2 (07:56→20:49)
[2021-08-08] MEDS: DOCUSATE SODIUM 100 MG CAP PO SCH ×2 (07:56→20:34)
[2021-08-08] MEDS: ASCORBIC ACID 500 MG TAB PO SCH ×2 (07:56→16:38)
[2021-08-08] MEDS: CEROVITE ADV FORMULA TAB PO SCH ×2 (07:56→20:35)
[2021-08-08] MEDS: CALCIUM ACETATE 667 MG CAP/TAB PO SCH ×3 (07:56→16:38)
[2021-08-08] MEDS: ASPIRIN 81 MG ECTAB PO SCH ×2 (07:56→20:34)
[2021-08-08] MEDS: predniSONE 20 MG TAB PO SCH (07:57)
[2021-08-08] MEDS: ROSUVASTATIN CALCIUM 5 MG TAB PO SCH (07:57)
[2021-08-08] MEDS: NIFEdipine EXTENDED REL 30 MG TABCR PO SCH (07:57)
--- NOTE | 2021-08-08 09:16 | Progress Notes ---
DATE OF SERVICE: 08/08/2021. SUBJECTIVE: An 86-year-old gentleman with multiple medical comorbidities, postop day 2 from a left k nee replacement. He went to dialysis yesterday. When he came back, he has been confused since then. He denies any significant pain. Seems somewhat appropriate today. He tells me stories that do seem to be appropriate, but just a bit off. OBJECTIVE: VITAL SIGNS: Temperature 36.7. Vital signs are stable. PHYSICAL EXAMINATION: GENERAL: Shows a pleasant elderly male. He is lying in bed. Looks a little bit restless. EXTREMITIES: Examination of the left leg reveals the dressing to be clean, dry and intact. He can d orsiflex and plantarflex his foot appropriately. He is neurologically intact. LABORATORY DATA: Hemoglobin 8.8. Hematocrit 26.5. Electrolytes are fairly stable. Chronically brayden vated creatinine. ASSESSMENT: An 86-year-old gentleman postoperative day 2 from a left knee replacement, doing okay. Medically seems okay except for his confusion. His pain is controlled. PLAN: 1. DVT prophylaxis includes thigh-high TEDs, SCDs, and he is on aspirin twice a day. 2. PT, OT, weightbear as tolerated. Left total knee protocol. 3. Pain control, he is doing okay with current pain regimen. We are going to hold on narcotics to a void confusion issues. 4. Medical management as per the medicine service. I believe he got dialyzed yesterday and is sched uled for dialysis on Tuesday. 5. Disposition: He is hoping to go to [facility] for a brief rehab stay. Job ID: [id number]
[2021-08-08] MEDS ORDERED: CYANOCOBALAMIN 1000 MCG/ML VIAL IM STA (09:25)
[2021-08-08] MEDS ORDERED: MAGNESIUM OXIDE 400 MG TAB PO STA (09:25)
[2021-08-08] MEDS ORDERED: IRON SUCROSE 300 MG in SODIUM CHLORIDE 0.9% 250 ML IV ONE (09:45)
[2021-08-08 10:01] LABS: Base Excess VBG 3.2 mEq/L; HCO3 VBG 28 mmol/L; PCO2 VBG 47 mmHg (38-50); PO2 VBG 19 mmHg
[2021-08-08 10:02] LABS: Oxygen Saturation VBG < 60.0 %
--- NOTE | 2021-08-08 10:20 | CT Scan Report ---
CT head/brain wo con CLINICAL HISTORY: confusion COMPARISON STUDY: No previous studies for comparison. CT DOSE: 537.48 mGy.cm TECHNIQUE: Standard CT of the Brain was performed without IV contrast. A dose lowering technique was utilized adhering to the principles of ALARA. FINDINGS: Extraaxial space: There is no evidence for subdural hematoma. There are no extra-axial fluid collecti ons. Ventricles and cisterns: The ventricles are mildly dilated bilaterally. There is no evidence for midl ine shift or mass effect. Parenchyma: There is no subarachnoid or intraparenchymal hemorrhage. There is evidence for a lacunar infarct involving the head of the thalamus on the right. This is ill-defined and could be acute or brito bacute in nature. If indicated clinically, follow-up MRI would be recommended for further evaluation. No other evidence for an acute infarct is seen. There is no cerebral edema. There is mild cerebral cortical atrophy and decreased attenuation in the periventricular white matter representing remote small vessel disease. There are no gross mass lesions. Osseous structures: There is no evidence for an acute fracture. The visualized paranasal sinuses are clear. The mastoid air cells are clear bilaterally. Soft tissues: There is no evidence for focal soft tissue swelling. IMPRESSION: 1. CT findings suspicious for an acute to subacute lacunar infarct involving the head of the thalamus on the right. 2. Cerebral cortical atrophy and remote small vessel disease. ACT 112: Negative or not required by law. Electronically signed by: Suresh Lucero M.D. 08/08/2021 10:18 AM
--- NOTE | 2021-08-08 10:52 | Hospitalist Progress Note ---
Date of Service August 08, 2021 Assessment & Plan (1) S/P total knee arthroplasty: Plan: - Patient received spinal anesthesia and had an uneventful perioperative course - Is s/p elective left TKA by Dr. Figueredo on 08/06 - Recommend postoperative pain management, PT/OT, incentive spirometry, continued perioperative antibiotic prophylaxis, and DVT prophylaxisat discreti on of primary team --Patient was receiving routine Nucynta which has since been stopped due to delirium. Would avoid narcotics if able - Recommend removal of Crowell catheter which I have orderedto encourage ambulation - Patient lives in a 3 story home with his and is hoping to be discharged t o [facility] (2) Delirium: Plan: -Patient having visual hallucinations -CT of the head showed concern for acute to subacute lacunar infarct -MRI done showing no evidence of acute infarct -VBG within normal limits -TSH normal at 1.06 -Ammonia normal at 18 -Urinalysis is cloudy and leukocyte esterase positive but nitrite negative. Will empirically start antibiotics and await final culture data -Hallucinations likely related to acute hospital acquired delirium in the setting of postsurgical state. UTI could be contributing. Await final culture data (3) Anemia: Plan: - acute on chronic. Do not suspect significant blood loss from surgery (as EBL only 20cc) - anemia likely multifactorial: ERSD and anemia of chronic disease, iron def, B12 def and dilutional - preop hgb 9.4. Was 7.8 on POD#1 but improved with dialysis (again, likely dilutional component) - procrit given with Dialysis / - iron: 14. Venofer given 08/08. Start oral supplementation - B12 low at 332. IM cyanocobalamin given today with oral supplementation to start tomorrow - continue to trend labs (4) ESRD (end stage renal disease): Plan: - follows [facility]. Receives dialysis MWF in [place] - Nephrology following for fluids mgmt - plan for D/C to [facility]. Need to coordinate dialysis accordingly. (5) Hypokalemia: Plan: - although patient with ESRD, he is NOT hyperkalemia and is actually slightly low (3.0). 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 Did get decadron but this has no mineralocorticoid affect - Solu-cortef given 08/07 with oral taper to start 08/08 (7) Hypertension: Plan: - continue Procardia and Coreg as prior to hosptialization Plan: will continue to follow along with this patient. Thank you for the consultation and allowing us to participate in the care of this patient Admission and Anticipated Discharge Date Admission Date: August 07, 2021 Subjective Patient seen on daily rounds today. Nursing reports concerns that he is still having visual hallucinations. Saw a rat on the floor. In addition, has been reporting seeing a coyote and deer when he was hunting this morning. This was mentioned in front of the patient and he is adamant that "these are not hallucinations. There really was a rat running across the floor". Otherwise, he has had no other neurological deficits. No trouble forming his words or eating, no weakness in his upper extremities. CT of the head done along with delirium work-up. CT showed concern for acute lacunar infarct. MRI subsequently obtained showing no evidence of acute infarct or hemorrhagic stroke. Review of Systems Review of Systems: All systems reviewed and are unremarkable except as noted in HPI and below Denies fevers, chills, headache, nasal congestion, sore throat, cough, chest pain, shortness of breath, palpitations, orthopnea, PND, abdominal pain, nausea, vomiting, diarrhea, constipation, dysuria, hematuria, frequency, back pain, joint pain or swelling, easy bruising or bleeding, skin lesions or rashes. Physical Exam Physical Exam: General: Resting comfortably in his hospital bed. Currently receiving dialysis. NAD. HEENT: Head is AT/NC. Buccal mucosa is moist and pink Neck: No JVD. Negative hepatojugular reflex Cardiac: RRR with 1/6 CHERI. Port noted to left chest wall. Lungs: CTA without W/R/R Abdomen: Normoactive X4. Soft and nontender in all quadrants. Extremities: Ryan wrap to left knee. Distal pulses to the bilateral lower extremities are intact and symmetrical. Capillary refill +2. Negative Homans' sign. No calf tenderness. Neuro: A&O X4. Cranial nerves II through XII are grossly intact. No focal neuro deficits Skin: No obvious skin lesions or rashes Psych: Appropriate affect. Pleasant and cooperative Results & Data Results & Data ([facility]) Vital Signs (Past 12 Hours) Vital Signs Temp Pulse Resp BP Pulse Ox 08/08/21 07:43 36.7 C 82 18 115/48 L 95 Laboratory Results 08/08/21 07:00 08/08/21 07:00 PG Care Time/CCT Total # of Minutes Spent Total Time Spent with Patient: Total time spent is greater than 50% in coordination of care (as documented) at patient's floor/unit and/or counseling patient: Coding Level of Care Code 40809 Inpt Consult Level 5 Diagnoses S/P total knee arthroplasty Z96.659 Anemia D64.9 ESRD (end stage renal disease) N18.6 Hypokalemia E87.6 Chronic steroid use Hypertension I10 Delirium R41.0
[2021-08-08 11:52] LABS: Appearance Urine Cloudy (Clear); Bacteria Urine Automated 1+ (Negative); Bilirubin Urine Negative (Negative); Blood Urine 3+ (Negative); Color Urine Yellow; Glucose Urine UA Negative (Negative); Ketones Urine Trace (Negative); Leukocyte Esterase Urine 2+ (Negative); Nitrite Urine Negative (Negative); Protein Urine 2+ (Negative); Specific Gravity Urine 1.019 (1.000-1.030); Urobilinogen Urine Negative (Negative); WBC Urine Automated >30 /hpf (0-5)
--- NOTE | 2021-08-08 13:30 | Magnetic Resonance Report ---
MR brain wo con CLINICAL HISTORY: abnormal CT- ? lacunar stroke. Confusion COMPARISON STUDY: CT brain from 08/08/2021 TECHNIQUE: Multiplanar multisequence images of the Brain were performed without IV contrast. FINDINGS: Extra-axial space: There is no evidence for a subdural hematoma, There are no extra-axial fluid hossein ections. Ventricles and cisterns: The ventricles are mildly dilated bilaterally. There is no evidence for mid line shift or mass effect. Parenchyma: Compared to the CT examination, there is no evidence for an acute hemorrhage or infarct. No acute diffusion abnormalities are noted on diffusion weighted imaging or ADC mapping. Therefore, t he finding seen at the head of the thalamus on the right represents a remote lacunar infarct. There is normal knapp-white differentiation. There is mild cerebral cortical atrophy present. There is minimal bright signal seen on FLAIR weighted sequences within the centrum semiovale and periventricu lar white matter characteristic of minimal remote small vessel disease. The sulci and gyri appear nor mal without effacement. The midline structures are unremarkable. The posterior fossa structures appea r normal. There is no evidence for mass lesion. Osseous structures: The paranasal sinuses are well aerated. The mastoid air cells are well aerated. Soft tissues: No focal soft tissue abnormalities are identified. IMPRESSION: 1. Compared to the CT examination, including or infarct within the head of the thalamus on the right is and does not demonstrate increased signal on diffusion weighted imaging or ADC mapping. 2. There is mild cerebral cortical atrophy and remote small vessel disease. ACT 112: Negative or not required by law. Electronically signed by: Suresh Lucero M.D. 08/08/2021 1:28 PM
[2021-08-08] MEDS: traMADol HCL 50 MG TABLET PO PRN (15:40)
[2021-08-08] MEDS: cefTRIAXone SODIUM 1,000 MG in DEXTROSE 5% 50 ML IV SCH (16:31)
--- NOTE | 2021-08-08 19:55 | Ultrasound Report ---
US carotid doppler BI CLINICAL HISTORY: acute stroke- assess flow. COMPARISON: None. TECHNIQUE: Payne scale, Doppler spectral analysis, and color imaging was performed. Stenosis assessmen t by velocity criteria. FINDINGS: Right CCA velocity (cm/s): 99 Right ICA velocity (cm/s): 72 Right ICA/CCA ratio: 0.73 Right vertebral arterial flow: Antegrade. Right findings: There is no significant atherosclerotic plaquing noted on the right. Left CCA velocity (cm/s): 1:30 Left ICA velocity (cm/s): 103 Left ICA/CCA ratio: 0.79 Left vertebral arterial flow: Antegrade. Left findings: There is no significant atherosclerotic plaquing noted on the left. IMPRESSION: No significant atherosclerotic plaquing or significant flow limiting stenoses noted by v elocity criteria bilaterally. ACT 112: Negative or not required by law. Electronically signed by: Suresh Lucero M.D. 08/08/2021 7:52 PM
[2021-08-08] MEDS: SENNA 8.6 MG TAB PO SCH (20:35)
[2021-08-09] MEDS: ACETAMINOPHEN 500 MG TAB PO SCH ×4 (05:32→23:09)
--- NOTE | 2021-08-09 08:11 | Hospitalist Progress Note ---
Date of Service August 09, 2021 Assessment & Plan (1) S/P total knee arthroplasty: Plan: - Is s/p elective left TKA by Dr. Figueredo on 08/06 - Patient received spinal anesthesia and had an uneventful perioperative course - Recommend postoperative pain management, PT/OT, incentive spirometry, continued perioperative antibiotic prophylaxis, and DVT prophylaxisat discretion of primary team --Patient was receiving routine Nucynta which has since been stopped due to delirium. Would avoid narcotics if able. Pain adequately controlled on Ultram - Patient lives in a 3 story home with his and is hoping to be discharged to [facility] (2) Delirium: Plan: - Patient having visual hallucinations, is confused to place and situation and somewhat agitated. Days/nights mixed up and now. NOT COMBATIVE - CT of the head showed concern for acute to subacute lacunar infarct - MRI done showing no evidence of acute infarct - VBG--> no hypercapnia - TSH normal at 1.06 - Ammonia normal at 18 - Urinalysis is cloudy and leukocyte esterase positive but nitrite negative. Empirically on abx - Hallucinations likely related to acute hospital acquired delirium in the setting of postsurgical state. UTI could be contributing. - Add Seroquel HS as now with increased agitation and didn't sleep lastnight. House Provider to follow up on this (3) Anemia: Plan: - acute on chronic. Do not suspect significant blood loss from surgery (as EBL only 20cc) - anemia likely multifactorial: ERSD and anemia of chronic disease, iron def, B12 def and dilutional - preop hgb 9.4. Was 7.8 on POD#1 but improved with dialysis (again, likely dilutional component) - procrit given with Dialysis 08/07 - iron: 14. Venofer given 08/08. Continue oral supplementation - B12 low at 332. IM cyanocobalamin given 08/08. Continue oral supplementation - continue to trend labs (4) ESRD (end stage renal disease): Plan: - follows [facility]. Receives dialysis MWF in [place] - Nephrology following for fluid mgmt - plan for D/C to [facility]. Bed available today but can not do dialysis until Tuesday. Did D/W Dr. Olivarez (Nephro) who said can wait until Tuesday - has AVF- not mature. Using Temporary Tunneled line (5) Hypokalemia: Plan: - Kbath done with dialysis on 08/07 - refused labs today (6) Chronic steroid use: Plan: - takes 5mg chronically for PMR - did not receive Steroid challenge perioperative. Did get decadron but this has no mineralocorticoid affect - Solu-cortef given 08/07 with oral taper to start 08/08. continue taper to 5mg dose (7) Hypertension: Plan: - continue Procardia and Coreg as prior to hosptialization Plan: There is a bed available for patient today at [facility]. I did reach out to primary team to make them aware of this. No medical contraindication to proceed with discharge. Thank you for allowing us to participate in this patient's care Admission and Anticipated Discharge Date Admission Date: August 07, 2021 Supervising Physician Co-Signing Physician Notes I supervised Monica Lainez PA-C on the care of this patient. I did not examine the patient today. The plan is as written in her note except for any following changes/exceptions: None Increased agitation and confusion. Looking for secondary causes (infection, medications, electrolytes), but nothing found so far. Likely hospital-acquired. Reaching out to [facility] MD to ensure good f/u. Subjective Patient seen on daily rounds today. Confused and Easily agitated. Unable to obtain accurate history given level of confusion. Nursing reports patient easily agitated but not combative. Refused all of his meds and labs this am. Review of Systems Review of Systems: limited historian Physical Exam Physical Exam: General: Resting comfortably in his hospital bed. Easily agitated today. Does not follow simple commands given his level of agitation. Is NOT combative. HEENT: Head is AT/NC. Buccal mucosa is moist and pink Neck: No JVD. Negative hepatojugular reflex Cardiac: RRR with 1/6 CHERI. Port noted to left chest wall. Lungs: CTA without W/R/R Abdomen: Normoactive X4. Soft and nontender in all quadrants. Extremities: Ryan wrap to left knee. Distal pulses to the bilateral lower extremities are intact and symmetrical. Capillary refill +2. Negative Homans' sign. No calf tenderness. Neuro: Today, oriented to year and self. Not oriented to place/situation. Cranial nerves II through XII are grossly intact. No focal neuro deficits Skin: No obvious skin lesions or rashes Psych: Appropriate affect. Pleasant and cooperative Results & Data Results & Data ([place]) Vital Signs (Past 12 Hours) Vital Signs Temp Pulse Pulse Resp BP Pulse Ox 08/09/21 07:00 36.8 C 78 20 140/65 92 08/09/21 03:03 36.4 C L 68 18 111/63 94 08/08/21 23:39 36.8 C 70 16 126/64 92 08/08/21 20:49 84 104/55 L Laboratory Results PT REFUSED LABS TODAY PG Care Time/CCT Total # of Minutes Spent Total Time Spent with Patient: Total time spent is greater than 50% in coordination of care (as documented) at patient's floor/unit and/or counseling patient: Coding Level of Care Code 27920 Inpt Consult Level 5 Diagnoses S/P total knee arthroplasty Z96.659 Delirium R41.0 Anemia D64.9 ESRD (end stage renal disease) N18.6 Hypokalemia E87.6 Chronic steroid use Hypertension I10
[2021-08-09] MEDS: ASPIRIN 81 MG ECTAB PO SCH (09:45)
[2021-08-09] MEDS: MAGNESIUM OXIDE 400 MG TAB PO SCH (09:45)
[2021-08-09] MEDS: DOCUSATE SODIUM 100 MG CAP PO SCH ×3 (09:45→23:09)
[2021-08-09] MEDS: carvediloL 3.125 MG TAB PO SCH ×3 (09:45→23:09)
[2021-08-09] MEDS: predniSONE 20 MG TAB PO SCH (09:45)
[2021-08-09] MEDS: CALCIUM ACETATE 667 MG CAP/TAB PO SCH ×3 (09:45→17:18)
[2021-08-09] MEDS: CEROVITE ADV FORMULA TAB PO SCH ×3 (09:45→23:09)
[2021-08-09] MEDS: NIFEdipine EXTENDED REL 30 MG TABCR PO SCH (09:45)
[2021-08-09] MEDS: FERROUS SULFATE 325 MG TAB PO SCH (09:45)
[2021-08-09] MEDS: CYANOCOBALAMIN (B-12) 500 MCG TABLET PO SCH (09:45)
[2021-08-09] MEDS: ASCORBIC ACID 500 MG TAB PO SCH ×2 (09:45→17:18)
[2021-08-09] MEDS: ROSUVASTATIN CALCIUM 20 MG TAB PO SCH (09:46)
--- NOTE | 2021-08-09 10:09 | XCELERA ---
[id number]
--- NOTE | 2021-08-09 11:39 | Progress Notes ---
DATE OF SERVICE: 08/09/2021. SUBJECTIVE: An 86-year-old gentleman now postop day 3 from left knee replacement. He has been prett y confused ever since dialysis on Tuesday. No real interval change. He has had an extensive workup f or possible stroke, which is negative. Everything looks good other than just his confusion. He rosa maria es any pain. No chest pain or shortness of breath. OBJECTIVE: VITAL SIGNS: Temperature 36.8. Vital signs are stable. PHYSICAL EXAMINATION: GENERAL: Shows a pleasant, elderly male. He is demanding to be released from the hospital. He is c learly confused, but does know me and calls me by name. EXTREMITIES: Examination of the left lower extremity reveals the dressing to be clean, dry and intac t. Some moderate swelling. He can dorsiflex and plantarflex his foot appropriately. He is neurolog ically intact. LABORATORY DATA: Hemoglobin is 8.8. Hematocrit 26.5. ASSESSMENT: An 86-year-old gentleman with end-stage renal disease, postoperative day #3 from a left knee replacement complicated by confusion. His workup has been negative. I do think this is just ho spital-acquired and postsurgical confusion and consistent with that. We need to hold all narcotics a nd use Tylenol for pain only. This should pass with time. Continue medical management. PLAN: 1. DVT prophylaxis includes thigh-high TEDs, SCDs, and aspirin twice a day. 2. PT, OT, weightbear as tolerated. Left total knee protocol. 3. Pain control, doing okay with current pain regimen. Really not having any pain. We are going to hold all narcotics. 4. Medical management as per the medicine service. 5. End-stage renal disease. He is getting dialysis likely tomorrow. 6. Disposition: Hopeful transfer to [facility] once medically stable. He can get dialysis there, I believe, and he will have to be coordinated. Job ID: [id number]
[2021-08-09] MEDS: cefTRIAXone SODIUM 1,000 MG in DEXTROSE 5% 50 ML IV SCH (12:25)
[2021-08-09] MEDS ORDERED: METOPROLOL TARTRATE 1 MG/ML VIAL IV STA (13:01)
[2021-08-09] MEDS ORDERED: METOPROLOL TARTRATE 1 MG/ML VIAL IV ONE (13:04)
[2021-08-09] MEDS ORDERED: STAT IV Infusion **Titration per Protocol STA (13:41)
[2021-08-09] MEDS ORDERED: AMIODARONE IV BOLUS & DRIP IV STA (13:41)
[2021-08-09] MEDS ORDERED: AMIODARONE / D5W 150 MG/100 ML BAG IV STA (13:41)
[2021-08-09] MEDS ORDERED: Heparin IV Adult Wt-Based Standard WITH Bolus Protocol IV STA (13:41)
[2021-08-09] MEDS ORDERED: AMIODARONE 150MG / 100ML D5W IV ONE (13:42)
[2021-08-09 14:01] LABS: Basophils # (auto) 0.01 K/uL (0-0.2); Basophils % (auto) 0.2 %; Eosinophils # (auto) 0.11 K/uL (0-0.5); Eosinophils % (auto) 1.7 %; Hematocrit (blood only) 22.5 % (42-52); Hemoglobin 7.5 g/dL (14.0-18.0); Immature Granulocytes # (auto) 0.04 K/uL (0.00-0.02); Immature Granulocytes % (auto) 0.6 %; Lymphocytes # (auto) 0.92 K/uL (1.2-3.4); Lymphocytes % (auto) 14.3 %; Mean Corpuscular Hemoglobin 33.2 pg (25-34); Mean Corpuscular Volume 99.6 fL (80-100); Mean Platelet Volume 10.9 fL (7.4-10.4); Monocytes # (auto) 0.49 K/uL (0.11-0.59); Monocytes % (auto) 7.6 %; Neutrophils # (auto) 4.85 K/uL (1.4-6.5); Neutrophils % (auto) 75.6 %; Platelet Count 145 K/uL (130-400); RDW Coefficient of Variation 14.2 % (11.5-14.5); RDW Standard Deviation 51.1 fL (36.4-46.3); Red Blood Count 2.26 M/uL (4.7-6.1); White Blood Count 6.42 K/uL (4.8-10.8)
[2021-08-09 14:15] LABS: Mean Corpuscular Hgb Conc 33.3 g/dL (32-36)
[2021-08-09] MEDS ORDERED: AMIODARONE / D5W 360 MG/200 ML BAG IV SCH ×2 (14:15→19:45)
--- NOTE | 2021-08-09 14:23 | Communication Note ---
Date of Service: August 09, 2021 Message from the nurse regarding patient. PCU tech questioned a few rhythm strips concerning for atrial fib/flutter. EKG obtained and patient evaluated. Reviewed cafeteria monitor and EKG, consistent with atrial fibrillation with RVR (150s to 180s). BP was 140 systolic. Patient completely asymptomatic (but again, remains a questionable historian). Specifically denies chest pain, palpitations, shortness of breath, dizziness or lightheadedness. Ordered 5 mg of IV Lopressor. Remains in A. fib with RVR (116-140) now with systolic blood pressure of 102. In addition, slightly hypoxic at 88% Patient transferred to PCU bed until bed availability, float nurse came to bedside. Amiodarone bolus given and drip initiated. 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 He has been on DVT prophylaxis since surgery but aspirin 81 mg twice daily. He is at an elevated risk given his history in the past. PE may be driving this. Will obtain venous dopplers- if positive, suspect has PE (but will avoid CTA if unnecessary). If doppler positive, no need to get CTA Although there is literature to suggest that eliquis would be appropriate in dialysis patient (with renal adjustment), there is not dose adjustment for DVT/PE-- this avoiding Eliquis. Xarelto contraindicated. If no obvious DVT/PE, do not necessarily need to bridge with Coumadin/heparin as risk of CVA low. If positive, needs bridged. Most recent BP, 126/74. If BP drops, would be inclined to bolus very gently with IVF, 250 cc at a time. Patient does not look volume overloaded. Clinicallylooks euvolemic Echo already done today- given concern for CVA yesterday. No obvious intracardiac thrombus Plan of care D/W Dr. Olivarez (Nephro) and Dr. Sy (cardiology) who will both follow patient. Appreciate assistance. Attending provider, Dr. Figueredo, updated Case management updated [facility] updated
--- NOTE | 2021-08-09 14:34 | XRay Report ---
XR chest 1V portable CLINICAL HISTORY: mild hypoxemia TECHNIQUE: Single frontal radiograph of the chest was obtained. Comparison: Comparison is made to chest 2 views 07/07/2021 FINDINGS: Dual lumen left subclavian catheter is seen. Cardiomegaly is noted. Prominence and cephalization of t he vasculature is seen. No evidence of pleural effusion or pneumothorax. IMPRESSION: Mild pulmonary edema. No evidence of pneumonia. ACT 112: Negative or not required by law. Electronically signed by: Serjio Ortiz M.D. 08/09/2021 2:31 PM
[2021-08-09 14:36] LABS: Alanine Aminotransferase < 3 U/L (7-52); Albumin Globulin Ratio 1.4 (0.9-2); Albumin Level 2.9 gm/dl (3.4-5.0); Alkaline Phosphatase 47 U/L (34-104); Anion Gap 13 (3-11); Aspartate Aminotransferase 11 U/L (13-39); BUN Creatinine Ratio 7.6 (10-20); Bilirubin,Total 0.3 mg/dl (0.2-1.0); Blood Urea Nitrogen 60 mg/dl (6-23); Calcium 8.1 mg/dl (8.5-10.1); Carbon Dioxide 23 mmol/L (21-32); Chloride 98 mmol/L (98-107); Creatine Kinase 21 U/L (30-223); Creatinine Clr Calc Pharmacy 7.5 ml/min; Est GFR (African American) 6.5 ml/min; Est GFR (Non-African American) 5.6 ml/min; Globulin 2.1 gm/dl (2.5-4.0); Glucose 129 mg/dl (70-99(Fasting)); Sodium 134 mmol/L (136-145)
--- NOTE | 2021-08-09 14:42 | Cardiology Consultation ---
Date of Consultation August 09, 2021 Assessment & Plan (1) Paroxysmal atrial fibrillation with RVR: (2) S/P total knee arthroplasty: (3) ESRD (end stage renal disease): (4) Elevated troponin I level: 86-year-old patient admitted for elective knee surgery developing postoperative atrial fibrillation with rapid ventricular response prior to discharge today. He is essentially asymptomatic and unaware of atrial fibrillation. Heart heart rate mildly improved with addition of IV Lopressor. Currently normotensive. IV amiodarone infusion initiated by hospitalist. We will continue overnight. Agree with anticoagulation with IV heparin as a bridge to oral warfarin. Goal INR 2.0-3.0. Postoperative state and hypokalemia likely contributing to current episode of A. fib. Serum TSH within normal limits. Chronic anemia stable as well without signs/symptoms of GI/ blood loss. Appears euvolemic at this time. Encouraged oral hydration. Repeat lab studies in a.m. Replace electrolytes as indicated. Natural history, pathophysiology, and stroke risk associate with atrial fibrillation discussed with the patient and his . They are agreeable to the current plan of care. History of Present Illness Reason for Consultation: Paroxysmal atrial fibrillation with rapid ventricular response Requesting Physician: Dr. Monica Lainez Attending Physician: Black Figueredo MD History of Present Illness 86-year-old patient admitted to the hospital for elective knee replacement. History of end-stage renal disease, frequent PVCs, dyslipidemia, hypertension, and pulmonary embolus. Patient developed atrial fibrillation with rapid ventricular response earlier today. He was treated with 1 dose of intravenous Lopressor which improved heart rate, however, blood pressure also declined. ECG confirms atrial fibrillation with rapid ventricular response. Lateral ST depressions noted. Patient seen and examined the bedside. Resting comfortably. is present. Patient denies chest pain, palpitations, shortness of breath, lightheadedness, or dizziness. Unaware of atrial fibrillation or tachycardia. Denies history of dysrhythmia aside from PVCs. No orthopnea, PND, or edema. Postoperative knee discomfort controlled. Review of 2D transthoracic echocardiogram demonstrates preserved LV systolic function. His x-ray is clear. Stat lab studies demonstrate mild hyponatremia and hypokalemia. Serum magnesium within normal limits. Troponin minimally elevated. Reports remote history of pulmonary embolus. He is unable to recall the details of the diagnosis or circumstances. Allergies Allergy/AdvReac Type Severity Reaction Status Date / Time allopurinol Allergy Mild pain in Verified 03/24/22 09:23 joints losartan Allergy Mild impaired Verified 08/06/21 09:23 renal function hydralazine Allergy Unknown Unknown Verified 08/06/21 09:23 Home Medications Medication Instructions Recorded Confirmed Type albuterol sulfate 90 mcg/actuation 2 puffs INHALATION Q4H PRN #18 gm 12/12/18 08/06/21 Rx aerosol inhaler prednisone 5 mg tablet 5 mg PO QAM #90 tab 12/12/18 08/06/21 Rx aspirin 81 mg chewable tablet 81 mg PO HS tab 12/19/18 08/06/21 History carvedilol 3.125 mg tablet 3.125 mg PO BID tab 07/15/20 08/06/21 History acetaminophen 500 mg tablet 1,000 mg PO Q6H PRN 07/01/21 08/06/21 History calcium acetate(phosphat bind) 667 667 mg PO UD 07/01/21 08/06/21 History mg capsule multivitamin with minerals 1 tab PO BID 07/01/21 08/06/21 History nifedipine 60 mg tablet,extended 60 mg PO QAM 07/01/21 08/06/21 History release rosuvastatin 5 mg tablet 5 mg PO QAM 07/01/21 08/06/21 History acetaminophen 500 mg tablet 1,000 mg PO Q8 30 Days #180 tab 08/09/21 Rx (Tylenol Extra Strength) aspirin 81 mg tablet,delayed 81 mg PO BID 45 Days #90 tab 08/09/21 Rx release cefdinir 300 mg capsule 300 mg PO DAILY 1 Days #1 cap 08/09/21 Rx cyanocobalamin (vitamin B-12) 500 1,000 mcg PO QAM #30 tab 08/09/21 Rx mcg tablet ferrous sulfate 325 mg (65 mg 325 mg PO QAM #30 tab 08/09/21 Rx iron) tablet,delayed release prednisone 10 mg tablet 10 mg PO DIRECTED #12 tab 08/09/21 Rx quetiapine 25 mg tablet (Seroquel) 25 mg PO HS #30 tab 08/09/21 Rx Patient History Medical History Anemia Balance problems Mild -due to old age per patient No walking device needed. No recent falls Deep vein thrombosis Many years ago- DVT and PE- specific unknown - currently takes aspirin-NO ISSUES SINCE Enlarged prostate with lower urinary tract symptoms (LUTS) ESRD (end stage renal disease) DIALYSIS TUESDAY/TUESDAY/TUESDAY [facility] Glaucoma Follows with eye doctor routinely Gout Hearing loss NO AIDES Hyperlipidemia Hypertension Macular degeneration Memory difficulty Due to old age per patient- mild Multiple pulmonary nodules STABLE PER PT/SPOUSE Nephrolithiasis Pulmonary embolism Many years ago - no issues since- on ASA PVCs (premature ventricular contractions) Frequent- follows with [facility] Temporal arteritis HX- no recent issues Surgical History AV fistula LUE History of cataract surgery right and left History of colonoscopy History of endoscopic sinus surgery History of temporal artery biopsy S/P inguinal hernia repair Family History Unknown Hypertension Father Coronary heart disease Myocardial infarction Denies family history of Ovarian cancer Prostate cancer Breast cancer Colorectal cancer Social History Smoking Status: Never smoker Second Hand Exposure: No; Do You Dip or Chew Tobacco: No; Hx Alcohol Use: Yes Alcohol type: beer Hx Substance Use: No Preferred Language: Panamanian Communication Ability: Effective Visual Impairment: Partially Limited Hearing Ability: Hard of Hearing Flow Floor Attendant Required: No Beliefs That Will Affect Care: None marital status: Current Living Situation: Spouse Current Living Situation Comment: LIVES WITH SPOUSE RUBI current occupational status: retired current occupation: teacher How many Children do You have: 1 Other Information That Helps Us Care for You: No Feels Safe at Home: Yes Safety Concerns: Feels Safe At This Time Childhood Exposure to Second-Hand Smoke: No caffeine: Yes (coffee) Dental Care, Regularly: Yes Physical Activity Frequency: Does not Exercise Seatbelt Use: always Sunscreen Use: No Do you think of yourself as: straight/heterosexual Assistive Devices: Walker Review of Systems Review of Systems: All systems reviewed & are unremarkable except as noted in Subjective Physical Exam Constitutional: well developed and well nourished; no acute distress Respiratory: normal respiratory effort; no respiratory distress and no labored breathing Auscultation: lungs clear to auscultation bilaterally; no crackles, no rales, no rhonchi and no wheezes Cardiovascular: Rate/Rhythm: + tachycardic and + irregularly irregular Heart Sounds: normal S1 and normal S2; no murmur Vessels: radial pulses present; no JVD and no carotid bruit Gastrointestinal (Abdomen): Inspection/Auscultation: abdomen normal to inspection and normal bowel sounds; abdomen not distended Percussion/Palpation: abdomen soft; abdomen nontender, no guarding and abdomen not rigid Neurologic: CN's II-XI intact bilaterally and moves all extremities; no focal motor deficits Motor/Sensory: no tremor Psychiatric: A+Ox3, euthymic affect Results & Data ([facility]) Vital Signs (Past 12 Hours) Vital Signs Temp Pulse Pulse Pulse Resp BP BP 08/09/21 14:30 119 H 18 121/74 08/09/21 14:15 130 H 18 126/74 08/09/21 13:59 145 H 20 118/64 08/09/21 13:30 118 H 16 102/61 08/09/21 13:05 149 H 125/63 08/09/21 12:55 37.4 C 149 H 16 125/63 08/09/21 11:00 37.1 C 79 20 141/68 H 08/09/21 08:00 83 08/09/21 07:00 36.8 C 78 20 140/65 08/09/21 03:03 36.4 C L 68 18 111/63 Pulse Ox 08/09/21 14:30 98 08/09/21 14:15 95 08/09/21 13:59 93 08/09/21 13:30 92 08/09/21 13:05 08/09/21 12:55 93 08/09/21 11:00 92 08/09/21 08:00 08/09/21 07:00 92 08/09/21 03:03 94
[2021-08-09 14:43] LABS: RBC Morphology Unremarkable
[2021-08-09] MEDS ORDERED: HEPARIN SOD (PORCINE) 1000 UNIT/ML IV ONE (15:13)
[2021-08-09] MEDS ORDERED: AMIODARONE / D5W 360 MG/200 ML BAG IV ONE (15:13)
[2021-08-09] MEDS ORDERED: 0.2 MICRON FILTER SET 1 EA IV ONE (15:13)
[2021-08-09] MEDS ORDERED: SODIUM CHLORIDE 0.9% 250 ML IV PRN (15:29)
[2021-08-09] MEDS ORDERED: ACETAMINOPHEN 325 MG TAB PO ONE (15:29)
[2021-08-09] MEDS ORDERED: FUROSEMIDE 40 MG/4 ML VIAL IV ONE (15:29)
[2021-08-09] MEDS ORDERED: POTASSIUM CHLORIDE CRTAB 20 MEQ TABCR PO STA (15:29)
[2021-08-09] MEDS ORDERED: Heparin IV Adult Wt-Based Standard WITH Bolus Protocol IV SCH (15:30)
--- NOTE | 2021-08-09 15:36 | Communication Note ---
Date of Service: August 09, 2021 CXR: Prominent pulmonary vessels without fulminant CHF. Clinically, patient does not appear volume overloaded Remains in atrial fibrillation with a rate of 119 bpm. Blood pressure has improved and currently 121/74. Metabolic panel shows hypokalemia of 3.0. Typically, would not replace this given his end-stage renal disease; however, given the new onset A. fibwe will supplement. Give low-dose amenities 20 mill equivalents p.o. now). Verified with nephrology CBC shows progressive anemia (hemoglobin 7.5). Not terribly symptomatic but given his A. fib with RVR, uptrending troponin (which was likely rate related ischemia), and mild hypoxemiawould benefit from a oxygen carrying capacity of blood. Will type and cross for 2 units. Premedicate with Tylenol. Transfuse 1 unit tonight (over 4 hours as opposed to 2) with 40 mg of IV Lasix post unit. Second unit to be transfused tomorrow with dialysis. Discussed with nephrology who agrees. Troponin is slightly elevated at 0.10. Suspect rate related ischemia. Denies chest pain. Cardiology on boardappreciate assistance. We will continue to cycle. Again, would benefit from oxygen carrying capacity of bloodtransfuse as outlined above
[2021-08-09 16:37] LABS: Partial Thromboplastin Ratio 1.3; Partial Thromboplastin Time 36.2 Seconds (21.0-31.0); Prothrombin Time 10.7 Seconds (9.0-12.0)
--- NOTE | 2021-08-09 16:48 | Ultrasound Report ---
US venous doppler LE BI CLINICAL HISTORY: A.Fib with rvr, h/o DVT- assess for clot TECHNIQUE: Bilateral lower extremity real-time compression venous ultrasound with Color Doppler imagi ng. Utilizing real-time ultrasonic imaging multiple real time high-resolution ultrasonic images with compression and noncompression maneuvers of the deep venous system in addition to color doppler imagi ng were performed from the common femoral vein through the proximal calf veins. COMPARISON: None available at the time of this dictation. FINDINGS: Currently there is normal compressibility of the deep venous system from the common femoral vein thro ugh the proximal calf veins. No current evidence of acute thrombosis is identified. Bilateral [place] c ysts are seen. There is a 5.6 x 0.6 x 2.3 cm complex collection in the left medial calf. Soft tissue edema is seen surrounding this region. Impression: No evidence of deep venous thrombus. 5.6 x 0.6 x 2.3 cm complex collection in the left medial calf ma y represent hematoma, correlation with clinical exam is recommended. ACT 112: Negative or not required by law. Electronically signed by: Serjio Ortiz M.D. 08/09/2021 4:45 PM
--- NOTE | 2021-08-09 17:16 | Communication Note ---
Date of Service: August 09, 2021 Pt remains in A.Fib with variable rate. Currently 112. BP improved (132/68) He was marginal hypotensive for which amio utilized and procardia and coreg held with improvement in his BP and still with variable HR-- resume Coreg (cautiously watching closely for s/s volume overload) start oral amio (to overlap x 24 hours)
[2021-08-09] MEDS ORDERED: WARFARIN SOD 5 MG TAB PO ONE (17:45)
[2021-08-09] MEDS: AMIODARONE / D5W 360 MG/200 ML BAG IV SCH (19:37)
[2021-08-09] MEDS ORDERED: OPTIRAY 320 125ml IV ONE (19:53)
--- NOTE | 2021-08-09 20:25 | CT Scan Report ---
CT angio chest PE protocol CLINICAL HISTORY: PE TECHNIQUE: Multidetector row helical CT of the chest was performed with angiographic protocol. Smith l and sagittal reformations were obtained. Coronal and sagittal MIPS were obtained from the axial nilda a set and were submitted for review. Automated dose lowering techniques and/or adjustment according to patient size were utilized for this exam. Comparison: Comparison is made to CT chest 10/22/2015 FINDINGS: Lungs and pleura: Bilateral atelectasis is seen. Heart and pericardium: Cardiomegaly is seen with biatrial enlargement. Vessels: Moderate atherosclerotic changes in the aorta and coronary arteries. No evidence of pulmonar y embolus. Mediastinum and lionel: Unremarkable. Chest wall and lower neck: Unremarkable. Abdomen: Unremarkable. Bones: Degenerative changes in the thoracic spine. IMPRESSION: 1. No evidence of pulmonary embolism. 2. Cardiomegaly. 3. Mild bilateral atelectasis. ACT 112: Negative or not required by law. Electronically signed by: Serjio Ortiz M.D. 08/09/2021 8:22 PM
[2021-08-09] MEDS: HEPARIN SODIUM/DEXTROSE 25,000 UNITS/500 ML BAG IV SCH (21:38)
[2021-08-09] MEDS: QUEtiapine FUMARATE 25 MG TABLET PO SCH ×2 (21:44→23:09)
[2021-08-09] MEDS: SENNA 8.6 MG TAB PO SCH ×2 (21:46→23:09)
[2021-08-09 22:24] LABS: Basophils # (auto) 0.01 K/uL (0-0.2); Basophils % (auto) 0.1 %; Eosinophils # (auto) 0.22 K/uL (0-0.5); Eosinophils % (auto) 2.5 %; Hematocrit (blood only) 27.4 % (42-52); Hemoglobin 9.2 g/dL (14.0-18.0); Immature Granulocytes # (auto) 0.05 K/uL (0.00-0.02); Immature Granulocytes % (auto) 0.6 %; Lymphocytes # (auto) 1.36 K/uL (1.2-3.4); Lymphocytes % (auto) 15.8 %; Mean Corpuscular Hemoglobin 32.9 pg (25-34); Mean Corpuscular Volume 97.9 fL (80-100); Mean Platelet Volume 11.1 fL (7.4-10.4); Monocytes # (auto) 0.56 K/uL (0.11-0.59); Monocytes % (auto) 6.5 %; Neutrophils # (auto) 6.43 K/uL (1.4-6.5); Neutrophils % (auto) 74.5 %; Platelet Count 162 K/uL (130-400); RDW Coefficient of Variation 14.8 % (11.5-14.5); RDW Standard Deviation 53.1 fL (36.4-46.3); White Blood Count 8.63 K/uL (4.8-10.8)
[2021-08-09 22:25] LABS: Mean Corpuscular Hgb Conc 33.6 g/dL (32-36)
[2021-08-09 22:46] LABS: BUN Creatinine Ratio 8.2 (10-20); Calcium 8.1 mg/dl (8.5-10.1); Creatinine Clr Calc Pharmacy 7.4 ml/min; Est GFR (African American) 6.4 ml/min; Est GFR (Non-African American) 5.6 ml/min; Potassium 3.4 mmol/L (3.5-5.1)
[2021-08-09] MEDS: FUROSEMIDE 40 MG/4 ML VIAL IV SCH (23:32)
[2021-08-09] MEDS: POTASSIUM CHLORIDE / WTR 10 MEQ/100 ML PLCT IV SCH (23:33)
[2021-08-10 01:17] LABS: Partial Thromboplastin Ratio > 5.1
[2021-08-10 01:23] LABS: Partial Thromboplastin Time > 139.0 Seconds (21.0-31.0)
[2021-08-10] MEDS: POTASSIUM CHLORIDE / WTR 10 MEQ/100 ML PLCT IV SCH (01:50)
[2021-08-10 05:17] LABS: Eosinophils # (auto) 0.19 K/uL (0-0.5); Eosinophils % (auto) 2.4 %; Hematocrit (blood only) 28.5 % (42-52); Hemoglobin 9.6 g/dL (14.0-18.0); Immature Granulocytes # (auto) 0.04 K/uL (0.00-0.02); Immature Granulocytes % (auto) 0.5 %; Lymphocytes # (auto) 1.57 K/uL (1.2-3.4); Lymphocytes % (auto) 19.6 %; Mean Corpuscular Hemoglobin 32.9 pg (25-34); Mean Corpuscular Hgb Conc 33.7 g/dL (32-36); Mean Corpuscular Volume 97.6 fL (80-100); Mean Platelet Volume 10.9 fL (7.4-10.4); Monocytes # (auto) 0.51 K/uL (0.11-0.59); Monocytes % (auto) 6.4 %; Neutrophils # (auto) 5.71 K/uL (1.4-6.5); Neutrophils % (auto) 71.1 %; Nucleated RBC # (auto) 0.02 K/uL (0-0); Nucleated RBC % (auto) 0.2 %; Platelet Count 158 K/uL (130-400); RDW Coefficient of Variation 15.1 % (11.5-14.5); RDW Standard Deviation 53.8 fL (36.4-46.3); Red Blood Count 2.92 M/uL (4.7-6.1); White Blood Count 8.02 K/uL (4.8-10.8)
[2021-08-10 05:43] LABS: INR 1.2 (0.9-1.1); Partial Thromboplastin Ratio 2.4; Prothrombin Time 12.7 Seconds (9.0-12.0)
[2021-08-10 05:45] LABS: BUN Creatinine Ratio 8.5 (10-20); Calcium 8.2 mg/dl (8.5-10.1); Creatinine Clr Calc Pharmacy 7.4 ml/min; Est GFR (African American) 6.4 ml/min; Est GFR (Non-African American) 5.5 ml/min; Magnesium 2.1 mg/dl (1.7-2.4); Potassium 3.6 mmol/L (3.5-5.1)
[2021-08-10 05:48] LABS: Partial Thromboplastin Time 66.6 Seconds (21.0-31.0)
[2021-08-10] MEDS: ACETAMINOPHEN 500 MG TAB PO SCH ×3 (06:18→22:48)
[2021-08-10] MEDS: FUROSEMIDE 40 MG/4 ML VIAL IV SCH (06:54)
[2021-08-10] MEDS ORDERED: SODIUM CHLORIDE 0.9% 1000ML 1,000 ML IV PRN (07:38)
[2021-08-10] MEDS ORDERED: METOPROLOL TARTRATE 1 MG/ML VIAL IV STA (07:44)
[2021-08-10] MEDS: AMIODARONE / D5W 360 MG/200 ML BAG IV SCH (07:58)
[2021-08-10] MEDS: predniSONE 10 MG TABLET PO SCH (08:21)
[2021-08-10] MEDS: ASCORBIC ACID 500 MG TAB PO SCH ×2 (08:21→16:26)
[2021-08-10] MEDS: ROSUVASTATIN CALCIUM 20 MG TAB PO SCH (08:21)
[2021-08-10] MEDS: CYANOCOBALAMIN (B-12) 500 MCG TABLET PO SCH (08:21)
[2021-08-10] MEDS: CALCIUM ACETATE 667 MG CAP/TAB PO SCH ×3 (08:22→16:26)
[2021-08-10] MEDS: AMIODARONE 200 MG TAB PO SCH ×2 (08:22→16:26)
[2021-08-10] MEDS: MAGNESIUM OXIDE 400 MG TAB PO SCH (08:23)
[2021-08-10] MEDS: FERROUS SULFATE 325 MG TAB PO SCH (08:23)
[2021-08-10] MEDS: CEROVITE ADV FORMULA TAB PO SCH (08:23)
[2021-08-10] MEDS: DOCUSATE SODIUM 100 MG CAP PO SCH ×2 (08:27→22:45)
[2021-08-10] MEDS ORDERED: carvediloL 6.25 MG TAB PO SCH (09:00)
--- NOTE | 2021-08-10 09:59 | Cardiology Progress Note ---
Date of Service August 10, 2021 Assessment & Plan (1) Paroxysmal atrial fibrillation with RVR: (2) S/P total knee arthroplasty: (3) ESRD (end stage renal disease): (4) Elevated troponin I level: Plan: 86-year-old patient admitted for elective knee surgery developing postoperative atrial fibrillation with rapid ventricular response. He remains in persistent afib with elevated rates this morning, but remains asymptomatic. IV amiodarone transitioned to oral amiodarone 400 mg BID by hospitalist. Due to elevated BP, carvedilol was resumed this morning and dose increased by hospitalist. However he becomes hypotensive during dialysis. So would discontinue carvedilol and transition to oral metoprolol tartrate 25 mg BID starting tonight to aid with rate/rhythm control. Continue IV heparin to Coumadin bridge. Goal INR 2-3. Supplement potassium with goal around 4.0 Post op anemia improved after transfusion. Hopeful with ongoing amiodarone, correction of electrolytes he will convert to NSR in the next 24 hours. Case discussed with Dr. Sy. Will follow. Admission and Anticipated Discharge Date Admission Date: August 07, 2021 Supervising Physician Co-Signing Physician Notes Patient seen and examined at bedside. Remains in atrial fibrillation with improved rate control on telemetry. Denies palpitations, lightheadedness, dizziness, chest discomfort, or unusual shortness of breath. Received 1 unit of packed red blood cells last evening with subsequent improvement of hemoglobin. Second unit which was scheduled to be transfused during hemodialysis has been canceled. Patient offers no complaints. PE: VSS. NAD, AAOx3. Heart: Irregular, tachycardic. Lungs: clear B/L, no R/R/W. Ext: No edema. A/P: Agree with above PA-C history, physical exam, assessment and plan. Continue amiodarone, IV heparin, warfarin as ordered. Transition carvedilol to metoprolol due to intermittent hypotension. Subjective Patient resting in bed comfortably. Notes ongoing knee pain and constipation as primary complaints. Having dialysis soon. Denies chest pain, SOB, palpitations. Remains in afib with elevated rates ranging 110-120's. No orthopnea, PND or edema. Received 1 unit PRBC overnight. Hbg improving. Potassium improving. Review of Systems Review of Systems: All systems reviewed & are unremarkable except as noted in HPI & below Physical Exam Constitutional: well developed and well nourished; no acute distress Respiratory: normal respiratory effort; no respiratory distress and no labored breathing Auscultation: lungs clear to auscultation bilaterally; no crackles, no rales, no rhonchi and no wheezes Cardiovascular: Rate/Rhythm: + tachycardic and + irregularly irregular Heart Sounds: normal S1 and normal S2; no murmur Vessels: radial pulses present; no JVD and no carotid bruit Gastrointestinal (Abdomen): Inspection/Auscultation: abdomen normal to inspection and normal bowel sounds; abdomen not distended Percussion/Palpation: abdomen soft; abdomen nontender, no guarding and abdomen not rigid Neurologic: CN's II-XI intact bilaterally and moves all extremities; no focal motor deficits Motor/Sensory: no tremor Psychiatric: A+Ox3, euthymic affect Results & Data ([facility]) Vital Signs (Past 12 Hours) Vital Signs Temp Pulse Pulse Pulse Resp BP BP 08/10/21 09:40 111 H 96/74 L 08/10/21 09:20 120 H 103/64 08/10/21 09:08 70 101/74 08/10/21 09:00 36.5 C 99 H 08/10/21 07:42 36.5 C 123 H 16 154/93 H 08/10/21 03:39 36.8 C 125 H 18 148/90 H 08/09/21 22:58 36.8 C 120 H 16 158/93 H Pulse Ox 08/10/21 09:40 08/10/21 09:20 08/10/21 09:08 08/10/21 09:00 08/10/21 07:42 94 08/10/21 03:39 93 08/09/21 22:58 96 Laboratory Results 08/10/21 08/10/21 08/10/21 Range/Units 05:10 05:10 05:10 WBC (4.8-10.8) K/uL RBC (4.7-6.1) M/uL Hgb (14.0-18.0) g/dL Hct (42-52) % MCV (80-100) fL MCH (25-34) pg MCHC (32-36) g/dL RDW Std Deviation (36.4-46.3) fL RDW Coeff of Kate (11.5-14.5) % Plt Count (130-400) K/uL MPV (7.4-10.4) fL Immature Gran % (Auto) % Neut % (Auto) % Lymph % (Auto) % Morton % (Auto) % Eos % (Auto) % Baso % (Auto) % Neut # (Auto) (1.4-6.5) K/uL Lymph # (Auto) (1.2-3.4) K/uL Morton # (Auto) (0.11-0.59) K/uL Eos # (Auto) (0-0.5) K/uL Baso # (Auto) (0-0.2) K/uL Immature Gran # (Auto) (0.00-0.02) K/uL Absolute Nucleated RBC (0-0) K/uL Nucleated RBC % (auto) % RBC Morphology PT 12.7 H (9.0-12.0) Seconds INR 1.2 H (0.9-1.1) APTT 66.6 H* (21.0-31.0) Seconds PTT Ratio 2.4 Sodium 133 L (136-145) mmol/L Potassium 3.6 (3.5-5.1) mmol/L Chloride 95 L (98-107) mmol/L Carbon Dioxide 21 (21-32) mmol/L Anion Gap 17 H (3-11) BUN 69 H (6-23) mg/dl Creatinine 8.09 H* (0.6-1.4) mg/dl Est Cr Clr Drug Dosing 7.4 ml/min Est GFR ( Amer) 6.4 ml/min Est GFR (Non-Af Amer) 5.5 ml/min BUN/Creatinine Ratio 8.5 L (10-20) Glucose 109 H (70-99(Fasting)) mg/dl Calcium 8.2 L (8.5-10.1) mg/dl Magnesium 2.1 (1.7-2.4) mg/dl Total Bilirubin (0.2-1.0) mg/dl AST (13-39) U/L ALT (7-52) U/L Alkaline Phosphatase (34-104) U/L Total Creatine Kinase (30-223) U/L Troponin I 0.14 H* (0-0.04) ng/ml Total Protein (6.0-8.3) gm/dl Albumin (3.4-5.0) gm/dl Globulin (2.5-4.0) gm/dl Albumin/Globulin Ratio (0.9-2) Blood Type Antibody Screen Crossmatch 08/10/21 08/09/21 08/09/21 Range/Units 05:10 22:17 22:17 WBC 8.02 (4.8-10.8) K/uL RBC 2.92 L (4.7-6.1) M/uL Hgb 9.6 L (14.0-18.0) g/dL Hct 28.5 L (42-52) % MCV 97.6 (80-100) fL MCH 32.9 (25-34) pg MCHC 33.7 (32-36) g/dL RDW Std Deviation 53.8 H (36.4-46.3) fL RDW Coeff of Kate 15.1 H (11.5-14.5) % Plt Count 158 (130-400) K/uL MPV 10.9 H (7.4-10.4) fL Immature Gran % (Auto) 0.5 % Neut % (Auto) 71.1 % Lymph % (Auto) 19.6 % Morton % (Auto) 6.4 % Eos % (Auto) 2.4 % Baso % (Auto) 0.0 % Neut # (Auto) 5.71 (1.4-6.5) K/uL Lymph # (Auto) 1.57 (1.2-3.4) K/uL Morton # (Auto) 0.51 (0.11-0.59) K/uL Eos # (Auto) 0.19 (0-0.5) K/uL Baso # (Auto) 0.00 (0-0.2) K/uL Immature Gran # (Auto) 0.04 H (0.00-0.02) K/uL Absolute Nucleated RBC 0.02 H (0-0) K/uL Nucleated RBC % (auto) 0.2 % RBC Morphology PT (9.0-12.0) Seconds INR (0.9-1.1) APTT > 139.0 H* (21.0-31.0) Seconds PTT Ratio > 5.1 Sodium (136-145) mmol/L Potassium (3.5-5.1) mmol/L Chloride (98-107) mmol/L Carbon Dioxide (21-32) mmol/L Anion Gap (3-11) BUN (6-23) mg/dl Creatinine (0.6-1.4) mg/dl Est Cr Clr Drug Dosing ml/min Est GFR ( Amer) ml/min Est GFR (Non-Af Amer) ml/min BUN/Creatinine Ratio (10-20) Glucose (70-99(Fasting)) mg/dl Calcium (8.5-10.1) mg/dl Magnesium (1.7-2.4) mg/dl Total Bilirubin (0.2-1.0) mg/dl AST (13-39) U/L ALT (7-52) U/L Alkaline Phosphatase (34-104) U/L Total Creatine Kinase (30-223) U/L Troponin I 0.16 H* (0-0.04) ng/ml Total Protein (6.0-8.3) gm/dl Albumin (3.4-5.0) gm/dl Globulin (2.5-4.0) gm/dl Albumin/Globulin Ratio (0.9-2) Blood Type Antibody Screen Crossmatch 08/09/21 08/09/21 08/09/21 Range/Units 22:17 22:17 16:15 WBC 8.63 (4.8-10.8) K/uL RBC 2.80 L (4.7-6.1) M/uL Hgb 9.2 L (14.0-18.0) g/dL Hct 27.4 L (42-52) % MCV 97.9 (80-100) fL MCH 32.9 (25-34) pg MCHC 33.6 (32-36) g/dL RDW Std Deviation 53.1 H (36.4-46.3) fL RDW Coeff of Kate 14.8 H (11.5-14.5) % Plt Count 162 (130-400) K/uL MPV 11.1 H (7.4-10.4) fL Immature Gran % (Auto) 0.6 % Neut % (Auto) 74.5 % Lymph % (Auto) 15.8 % Morton % (Auto) 6.5 % Eos % (Auto) 2.5 % Baso % (Auto) 0.1 % Neut # (Auto) 6.43 (1.4-6.5) K/uL Lymph # (Auto) 1.36 (1.2-3.4) K/uL Morton # (Auto) 0.56 (0.11-0.59) K/uL Eos # (Auto) 0.22 (0-0.5) K/uL Baso # (Auto) 0.01 (0-0.2) K/uL Immature Gran # (Auto) 0.05 H (0.00-0.02) K/uL Absolute Nucleated RBC (0-0) K/uL Nucleated RBC % (auto) % RBC Morphology PT (9.0-12.0) Seconds INR (0.9-1.1) APTT (21.0-31.0) Seconds PTT Ratio Sodium 131 L (136-145) mmol/L Potassium 3.4 L (3.5-5.1) mmol/L Chloride 95 L (98-107) mmol/L Carbon Dioxide 21 (21-32) mmol/L Anion Gap 15 H (3-11) BUN 66 H (6-23) mg/dl Creatinine 8.02 H* (0.6-1.4) mg/dl Est Cr Clr Drug Dosing 7.4 ml/min Est GFR ( Amer) 6.4 ml/min Est GFR (Non-Af Amer) 5.6 ml/min BUN/Creatinine Ratio 8.2 L (10-20) Glucose 124 H (70-99(Fasting)) mg/dl Calcium 8.1 L (8.5-10.1) mg/dl Magnesium (1.7-2.4) mg/dl Total Bilirubin (0.2-1.0) mg/dl AST (13-39) U/L ALT (7-52) U/L Alkaline Phosphatase (34-104) U/L Total Creatine Kinase (30-223) U/L Troponin I (0-0.04) ng/ml Total Protein (6.0-8.3) gm/dl Albumin (3.4-5.0) gm/dl Globulin (2.5-4.0) gm/dl Albumin/Globulin Ratio (0.9-2) Blood Type O Positive Antibody Screen NEGATIVE Crossmatch See Detail 0308/09/21 08/09/21 Range/Units 16:15 16:15 13:51 WBC (4.8-10.8) K/uL RBC (4.7-6.1) M/uL Hgb (14.0-18.0) g/dL Hct (42-52) % MCV (80-100) fL MCH (25-34) pg MCHC (32-36) g/dL RDW Std Deviation (36.4-46.3) fL RDW Coeff of Kate (11.5-14.5) % Plt Count (130-400) K/uL MPV (7.4-10.4) fL Immature Gran % (Auto) % Neut % (Auto) % Lymph % (Auto) % Morton % (Auto) % Eos % (Auto) % Baso % (Auto) % Neut # (Auto) (1.4-6.5) K/uL Lymph # (Auto) (1.2-3.4) K/uL Morton # (Auto) (0.11-0.59) K/uL Eos # (Auto) (0-0.5) K/uL Baso # (Auto) (0-0.2) K/uL Immature Gran # (Auto) (0.00-0.02) K/uL Absolute Nucleated RBC (0-0) K/uL Nucleated RBC % (auto) % RBC Morphology PT 10.7 (9.0-12.0) Seconds INR 1.0 (0.9-1.1) APTT 36.2 H (21.0-31.0) Seconds PTT Ratio 1.3 Sodium 134 L (136-145) mmol/L Potassium 3.0 L (3.5-5.1) mmol/L Chloride 98 (98-107) mmol/L Carbon Dioxide 23 (21-32) mmol/L Anion Gap 13 H (3-11) BUN 60 H D (6-23) mg/dl Creatinine 7.92 H* D (0.6-1.4) mg/dl Est Cr Clr Drug Dosing 7.5 ml/min Est GFR ( Amer) 6.5 ml/min Est GFR (Non-Af Amer) 5.6 ml/min BUN/Creatinine Ratio 7.6 L (10-20) Glucose 129 H (70-99(Fasting)) mg/dl Calcium 8.1 L (8.5-10.1) mg/dl Magnesium 2.0 (1.7-2.4) mg/dl Total Bilirubin 0.3 (0.2-1.0) mg/dl AST 11 L (13-39) U/L ALT < 3 L (7-52) U/L Alkaline Phosphatase 47 (34-104) U/L Total Creatine Kinase 21 L (30-223) U/L Troponin I 0.11 H* 0.10 H* (0-0.04) ng/ml Total Protein 5.0 L (6.0-8.3) gm/dl Albumin 2.9 L (3.4-5.0) gm/dl Globulin 2.1 L (2.5-4.0) gm/dl Albumin/Globulin Ratio 1.4 (0.9-2) Blood Type Antibody Screen Crossmatch 08/09/21 Range/Units 13:51 WBC 6.42 (4.8-10.8) K/uL RBC 2.26 L (4.7-6.1) M/uL Hgb 7.5 L (14.0-18.0) g/dL Hct 22.5 L (42-52) % MCV 99.6 (80-100) fL MCH 33.2 (25-34) pg MCHC 33.3 (32-36) g/dL RDW Std Deviation 51.1 H (36.4-46.3) fL RDW Coeff of Kate 14.2 (11.5-14.5) % Plt Count 145 (130-400) K/uL MPV 10.9 H (7.4-10.4) fL Immature Gran % (Auto) 0.6 % Neut % (Auto) 75.6 % Lymph % (Auto) 14.3 % Morton % (Auto) 7.6 % Eos % (Auto) 1.7 % Baso % (Auto) 0.2 % Neut # (Auto) 4.85 (1.4-6.5) K/uL Lymph # (Auto) 0.92 L (1.2-3.4) K/uL Morton # (Auto) 0.49 (0.11-0.59) K/uL Eos # (Auto) 0.11 (0-0.5) K/uL Baso # (Auto) 0.01 (0-0.2) K/uL Immature Gran # (Auto) 0.04 H (0.00-0.02) K/uL Absolute Nucleated RBC (0-0) K/uL Nucleated RBC % (auto) % RBC Morphology Unremarkable PT (9.0-12.0) Seconds INR (0.9-1.1) APTT (21.0-31.0) Seconds PTT Ratio Sodium (136-145) mmol/L Potassium (3.5-5.1) mmol/L Chloride (98-107) mmol/L Carbon Dioxide (21-32) mmol/L Anion Gap (3-11) BUN (6-23) mg/dl Creatinine (0.6-1.4) mg/dl Est Cr Clr Drug Dosing ml/min Est GFR ( Amer) ml/min Est GFR (Non-Af Amer) ml/min BUN/Creatinine Ratio (10-20) Glucose (70-99(Fasting)) mg/dl Calcium (8.5-10.1) mg/dl Magnesium (1.7-2.4) mg/dl Total Bilirubin (0.2-1.0) mg/dl AST (13-39) U/L ALT (7-52) U/L Alkaline Phosphatase (34-104) U/L Total Creatine Kinase (30-223) U/L Troponin I (0-0.04) ng/ml Total Protein (6.0-8.3) gm/dl Albumin (3.4-5.0) gm/dl Globulin (2.5-4.0) gm/dl Albumin/Globulin Ratio (0.9-2) Blood Type Antibody Screen Crossmatch Diagnostic Findings Telemetry reviewed - Atrial fibrillation with elevated ventricular rates around 120 bpm Chest CTA report reviewed dated 08/09/21: IMPRESSION: 1. No evidence of pulmonary embolism. 2. Cardiomegaly. 3. Mild bilateral atelectasis. Echo results reviewed from 08/09/21: Normal LV systolic function. No wall motion abnormalities. LVEF 60-65% Mild MR Mild TR Compared to prior study in 2016, no significant change. Medications Administered Current Inpatient Medications Acetaminophen (Acetaminophen 500 Mg Tab) 1,000 mg PO Q8 MIGDALIA Stop: 09/05/21 16:29 Last Admin: 08/10/21 06:18 Dose: Not Given Documented by: Al Hydrox/Mg Hydrox/Simethicone (Aluminum/Magnesium Susp 30 Ml Udc) 15 ml PO Q4H PRN PRN Reason: Heartburn Stop: 09/05/21 14:27 Amiodarone HCl (Amiodarone 200 Mg Tab) 400 mg PO BIDM [facility] Stop: 09/09/21 07:59 Last Admin: 08/10/21 08:22 Dose: 400 mg Documented by: Ascorbic Acid (Ascorbic Acid 500 Mg Tab) 500 mg PO BIDM [facility] Stop: 09/05/21 16:59 Last Admin: 08/10/21 08:21 Dose: 500 mg Documented by: Bisacodyl (Bisacodyl 10 Mg Supp) 10 mg UT DAILY PRN PRN Reason: Constipation Stop: 09/05/21 14:27 Calcium Acetate (Calcium Acetate 667 Mg Cap/Tab) 667 mg PO AC [facility] Stop: 09/05/21 16:29 Last Admin: 08/10/21 08:22 Dose: 667 mg Documented by: Calcium Acetate (Calcium Acetate 667 Mg Cap/Tab) 667 mg PO PRN PRN PRN Reason: WITH SNACKS Stop: 09/05/21 16:05 Cyanocobalamin (Cyanocobalamin (B-12) 500 Mcg Tablet) 1,000 mcg PO QAM [facility] Stop: 09/08/21 08:59 Last Admin: 08/10/21 08:21 Dose: 1,000 mcg Documented by: Docusate Sodium (Docusate Sodium 100 Mg Cap) 100 mg PO BID [facility] Stop: 09/05/21 20:59 Last Admin: 08/10/21 08:27 Dose: 100 mg Documented by: Ferrous Sulfate (Ferrous Sulfate 325 Mg Tab) 325 mg PO QAM [facility] Stop: 09/08/21 08:59 Last Admin: 08/10/21 08:23 Dose: 325 mg Documented by: Ceftriaxone Sodium 1,000 mg/ (Dextrose) 50 mls @ 100 mls/hr IV Q24H [facility]; Protocol Stop: 08/13/21 15:59 Last Infusion: 08/09/21 12:58 Dose: Infused Documented by: Amiodarone HCl/Dextrose (Nexterone / D5w) 360 mg in 200 mls @ 16.667 mls/hr IV .Q12H [facility] Stop: 09/08/21 20:14 Last Admin: 08/10/21 07:58 Dose: 0.5 mg/min, 16.7 mls/hr Documented by: Heparin Sodium/Dextrose (Heparin Sodium/Dextrose) 25,000 units in 500 mls @ 26 mls/hr IV .[id number] [facility]; Protocol Stop: 09/08/21 15:12 Last Titration: 08/10/21 07:17 Dose: 1,300 units/hr, 26 mls/hr Documented by: Sodium Chloride (Nss 1000ml) 1,000 mls @ 0 mls/hr IV .Q0M PRN PRN Reason: For Hemodialysis Use ONLY Stop: 08/10/21 13:37 Magnesium Hydroxide (Magnesium Hydroxide Susp 30 Ml Udc) 30 ml PO Q6H PRN PRN Reason: Constipation Stop: 09/05/21 14:27 Magnesium Oxide (Magnesium Oxide 400 Mg Tab) 400 mg PO QAM [facility] Stop: 09/08/21 08:59 Last Admin: 08/10/21 08:23 Dose: 400 mg Documented by: Metoprolol Tartrate (Metoprolol Tartrate 25 Mg Tab) 25 mg PO BID [facility] Stop: 09/09/21 20:59 Multivitamins/Minerals (Cerovite Adv Formula Tab) 1 tab PO BID [facility] Stop: 09/05/21 20:59 Last Admin: 08/10/21 08:23 Dose: 1 tab Documented by: Naloxone HCl (Naloxone Hcl 0.4 Mg/1 Ml Vial/Carp) 0.1 mg IV Q5M PRN PRN Reason: Oversedation/Resp Depression Stop: 09/05/21 14:27 Ondansetron HCl (Ondansetron Inj 2 Mg/Ml 2 Ml Vial) 4 mg IV Q6H PRN PRN Reason: Nausea And Vomiting Stop: 09/05/21 14:27 Prednisone (Prednisone 10 Mg Tablet) 30 mg PO DAILY [facility] Stop: 09/09/21 08:59 Last Admin: 08/10/21 08:21 Dose: 30 mg Documented by: Quetiapine Fumarate (Quetiapine Fumarate 25 Mg Tablet) 25 mg PO HS [facility] Stop: 09/08/21 20:59 Last Admin: 08/09/21 23:09 Dose: Not Given Documented by: Rosuvastatin Calcium (Rosuvastatin Calcium 20 Mg Tab) 20 mg PO QAM [facility] Stop: 09/08/21 08:59 Last Admin: 08/10/21 08:21 Dose: 20 mg Documented by: Sennosides (Senna 8.6 Mg Tab) 17.2 mg PO HS [facility] Stop: 09/05/21 20:59 Last Admin: 08/09/21 23:09 Dose: Not Given Documented by: Tamsulosin HCl (Tamsulosin Hcl 0.4 Mg Cap) 0.4 mg PO QAM PRN PRN Reason: UNABLE to void Stop: 09/05/21 14:27 Tramadol HCl (Tramadol Hcl 50 Mg Tablet) 50 mg PO Q4H PRN PRN Reason: Pain Stop: 09/06/21 15:26 Last Admin: 08/08/21 15:40 Dose: 50 mg Documented by:
--- NOTE | 2021-08-10 10:28 | Nephrology Progress Note ---
Date of Service August 10, 2021 Assessment & Plan (1) ESRD (end stage renal disease): Plan: for routine HD today; goal up to 2.5L off but w/in HR/ BP parameters and has already been turned down on uf goal; not floridly overloaded on exam via TDC >next HD for 08/12 or as needs dictate -stopped MVI > ordered more appropriate renal vitamin (2) Paroxysmal atrial fibrillation with RVR: Plan: new issue for him; on heparin gtt; to start coumadin; cardiology following; amiodarone started >>>HE is on high dose daily prednisone >> so combination w/ coumadin will need to be monitored closely d/t bleeding risk (3) Anemia: Plan: -gets IV iron w/ HD > will d/c po iron -JESE as indicated w/ HD -s/p 1 unit pRBC; no need for second unit today Admission and Anticipated Discharge Date Admission Date: August 07, 2021 Subjective seen on rounds this am approx 0730; c/o constipation; no uncontrolled pain, no sob; states he voided overnight. ?mild intermittent confusion emerges in conversation>> states he's overdue for dialysis, wants to get in his [facility] Review of Systems Review of Systems: All systems reviewed & are unremarkable except as noted in Subjective Physical Exam Constitutional: well developed and well nourished Eyes: EOM intact bilaterally ENMT: Ears: no external ear abnormality Nose: no external nose abnormality Mouth: + dry oral mucous membranes Neck: no nuchal rigidity Respiratory: normal respiratory effort Auscultation: + diminished lung sounds Cardiovascular: Rate/Rhythm: + tachycardic (in 100s and irregular) Extremities: no edema (TEDS in place) Gastrointestinal (Abdomen): Inspection/Auscultation: normal bowel sounds Percussion/Palpation: abdomen soft; abdomen nontender Musculoskeletal: Extremities: strength 5/5 throughout Skin: no rashes, warm and dry L hip incision Neurologic: lewis, fluent speech, no tremor Psychiatric: Orientation: oriented to person (? mild confusion as above) and cooperative Genitourinary: no johnson Results & Data ([facility]) Vital Signs (Past 12 Hours) Vital Signs Temp Pulse Pulse Pulse Resp BP BP 08/10/21 10:00 120 H 104/67 08/10/21 09:40 111 H 96/74 L 08/10/21 09:20 120 H 103/64 08/10/21 09:08 70 101/74 08/10/21 09:00 36.5 C 99 H 08/10/21 07:42 36.5 C 123 H 16 154/93 H 08/10/21 03:39 36.8 C 125 H 18 148/90 H 08/09/21 22:58 36.8 C 120 H 16 158/93 H Pulse Ox 08/10/21 10:00 08/10/21 09:40 08/10/21 09:20 08/10/21 09:08 08/10/21 09:00 08/10/21 07:42 94 08/10/21 03:39 93 08/09/21 22:58 96 Laboratory Results 08/10/21 05:10 08/10/21 05:10
--- NOTE | 2021-08-10 12:05 | Electrocardiogram Report ---
Test Reason : Blood Pressure : / mmHG Vent. Rate : 147 BPM Atrial Rate : 088 BPM P-R Int : 000 ms QRS Dur : 094 ms QT Int : 318 ms P-R-T Axes : 000 -31 178 degrees QTc Int : 497 ms Atrial fibrillation with rapid ventricular response Left axis deviation Abnormal ECG When compared with ECG of 07-JUL-2021 11:16, Significant changes have occurred Confirmed by Chris Bradshaw ([id number]) on 08/10/2021 12:05:03 PM Referred By: Black Figueredo Confirmed By:Chris Bradshaw
--- NOTE | 2021-08-10 12:39 | Electrocardiogram Report ---
Test Reason : Blood Pressure : / mmHG Vent. Rate : 112 BPM Atrial Rate : 120 BPM P-R Int : 000 ms QRS Dur : 086 ms QT Int : 352 ms P-R-T Axes : 000 -21 -15 degrees QTc Int : 480 ms Atrial fibrillation with rapid ventricular response Abnormal ECG When compared with ECG of 09-AUG-2021 12:49, (unconfirmed) ST no longer depressed in Anterolateral leads T wave inversion no longer evident in Lateral leads Confirmed by Chris Bradshaw ([id number]) on 08/10/2021 12:39:08 PM Referred By: Black Figueredo Confirmed By:Chris Bradshaw
--- NOTE | 2021-08-10 12:47 | Electrocardiogram Report ---
Test Reason : Blood Pressure : / mmHG Vent. Rate : 069 BPM Atrial Rate : 069 BPM P-R Int : 156 ms QRS Dur : 086 ms QT Int : 418 ms P-R-T Axes : 005 -10 005 degrees QTc Int : 447 ms Sinus rhythm with Premature supraventricular complexes Otherwise normal ECG When compared with ECG of 10-AUG-2021 10:37, (unconfirmed) Previous ECG has undetermined rhythm, needs review Confirmed by Chris Bradshaw ([id number]) on 08/10/2021 12:46:57 PM Referred By: Black Figueredo Confirmed By:Chris Bradshaw
[2021-08-10 15:36] LABS: Partial Thromboplastin Ratio 3.4
[2021-08-10] MEDS ORDERED: WARFARIN SOD 5 MG TAB PO ONE (16:00)
[2021-08-10 16:21] LABS: Partial Thromboplastin Time 93.1 Seconds (21.0-31.0)
[2021-08-10] MEDS: cefTRIAXone SODIUM 1,000 MG in DEXTROSE 5% 50 ML IV SCH (16:24)
--- NOTE | 2021-08-10 16:34 | Hospitalist Progress Note ---
Date of Service August 10, 2021 Assessment & Plan (1) Paroxysmal atrial fibrillation with RVR: Plan: On the afternoon of 08/09, patient went into new onset atrial fibrillation with RVR -Patient with underlying HTN which is a risk factor. 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- venous doppler and CTA: negative for DVT and PE - Tx with amiodarone drip given intolerance to Lopressor (drop in BP) - IV amiodarone has overlapped and since transitioned to oral Amiodarone (would do 400mg BID x 1 week then 200mg BID unless otherwise specified by cardiology) - BP improved with added rate control and subsequently placed back on Coreg (which has now been transitioned to metoprolol by Cardiology for more rate co ntrol and less effect on BP) - Has since converted to a normal sinus rhythm - Needs anticoagulated as ChadVasc2 score=3 - Given ESRD, has been on heparin/Coumadin bridge (until therapeutic= 2-3) - Although Eliquis can be considered with renal adjustments, Nephrology requests NO ELIQUIS - TTE: Ventricular systolic function normal with EF of 60 to 65%. Mild MR. Mild TR. No intracardiac thrombus (done prior to him going into new onset A. fib) - Cardiology following-- appreciate assistance (2) Elevated troponin I level: Plan: - 0.10 - 0.11 - 0.16 - 0.14 - No acute ST/T wave changes on EKG. No chest pain - Suspect rate related ischemia (3) Anemia: Plan: - acute on chronic. Do not suspect significant blood loss from surgery (as EBL only 20cc) - anemia likely multifactorial: ERSD and anemia of chronic disease, iron def, B12 def and dilutional - preop hgb 9.4. Was 7.8 on POD#1 but improved with dialysis (again, likely dilutional component) - procrit given with Dialysis 08/07 - iron: 14. Venofer given 08/08. Continue oral supplementation - B12 low at 332. IM cyanocobalamin given 08/08. Continue oral supplementation - hgb back down to 7.5 (which could have contributed to his rapid A.Fib). Received 1 unit packed RBCs. Follow-up hemoglobin 9.6 today. No need for additional unit at this time (4) Hypokalemia: Plan: - Kbath done with dialysis on 08/07 - Remained hypokalemic which could have contributed to his rapid A. fib with RVR. Potassium supplemented gently given his ESRD (5) S/P total knee arthroplasty: Plan: - Is s/p elective left TKA by Dr. Figueredo on 08/06 - Patient received spinal anesthesia and had an uneventful perioperative course - Postoperative pain controlled. Avoid narcotics as increased delirium with Nucynta given. Pain currently controlled with Ultram - Aspirin 81 mg twice daily given upfront but patient now on Coumadin given A. fib with RVR. In addition, has history of PE/DVT thus would avoid aspirin for prophylaxis givne increased risk - Patient lives in a 3 story home with his and is hoping to be discharged to [facility] (which is on hold given the A.Fib with RVR) (6) Delirium: Plan: - Patient having visual hallucinations, is confused to place and situation and somewhat agitated. Days/nights mixed up and now. NOT COMBATIVE - CT of the head showed concern for acute to subacute lacunar infarct - MRI done showing no evidence of acute infarct - VBG--> no hypercapnia - TSH normal at 1.06 - Ammonia normal at 18 - There is a question of UTI based on his urinalysis. Completed 3 days of Rocephin. Urine culture has since come back showing a contaminated specimen. Despite this, completed full course of antibiotics for uncomplicated UTI - Hallucinations likely related to acute hospital acquired delirium in the setting of postsurgical state. UTI could be contributing. - Seroquel added given increased agitation (7) ESRD (end stage renal disease): Plan: - follows [facility]. Receives dialysis MWF in [place] - Nephrology following for fluid mgmt - Dialysis done 08/07 and 08/10 - has AVF- not mature. Using Temporary Tunneled line (8) Chronic steroid use: Plan: - takes 5mg chronically for PMR - did not receive Steroid challenge perioperative. Did get decadron but this has no mineralocorticoid affect - Solu-cortef given 08/07 with oral taper to start 08/08. continue taper to 5mg dose (9) Hypertension: Plan: -Patient with marginal hypotension during episode of atrial fibrillation with RVR. Procardia has been on hold -Coreg transition to metoprolol (for added heart rate control with less effect on the blood pressure) -BP currently 110/68 Plan: Discharge to [facility] canceled given new onset A. fib with RVR Patient has since converted to normal sinus rhythm but remains in house on heparin/Coumadin bridge until INR therapeutic (2-3) We will continue to follow with this patient. Thank you for allowing us to participate in his care. Case D/W Nephrology and Cardiology Admission and Anticipated Discharge Date Admission Date: August 07, 2021 Subjective Patient seen on daily rounds today. Upon chart rounding this morning, noted to remain in atrial fibrillation with a rate in the 120s to 130s. Called PCU tele DEMANDIT and was consistent with A. fib with RVR. BP was 158 systolic. I had ordered resumption of his Coreg last night at 3.125 mg. I increased the dose to 6.25 mg this morning in addition to starting him on oral amiodarone to overlap. Seen by cardiology this morning who subsequently has changed his Coreg to metoprolol. Patient subsequently converted to normal sinus rhythm around noon today. Blood pressure remained stable at 110/68 Patient had 1 unit packed RBCs transfused last night with plan to transfuse additional unit today with dialysis; however, his hemoglobin is up at 9.6. Patient underwent dialysis today for a total of 1385 cc as BP would not tolerate the full 2L. Currently, patient voices no complaints or concerns. Denies fevers, chills, chest pain, shortness of breath, abdominal pain, nausea or vomiting. Review of Systems Review of Systems: All systems reviewed and are unremarkable except as noted in HPI and below Denies fevers, chills, headache, nasal congestion, sore throat, cough, chest pain, shortness of breath, palpitations, orthopnea, PND, abdominal pain, nausea, vomiting, diarrhea, constipation, dysuria, hematuria, frequency, back pain, joint pain or swelling, easy bruising or bleeding, skin lesions or rashes. Physical Exam Physical Exam: General: Resting comfortably in his hospital bed. NAD. HEENT: Head is AT/NC. Buccal mucosa is moist and pink Neck: No JVD. Negative hepatojugular reflex Cardiac: Irregularly irregular without M/G/R Lungs: CTA without W/R/R Abdomen: Normoactive X4. Soft and nontender in all quadrants. Extremities: Bruit and vibration to left AV fistula Neuro: A&O X4. Cranial nerves II through XII are grossly intact. No focal neuro deficits Skin: No obvious skin lesions or rashes Psych: Appropriate affect. Pleasant and cooperative Results & Data Results & Data ([facility]) Vital Signs (Past 12 Hours) Vital Signs Temp Pulse Pulse Pulse Resp BP BP 08/10/21 15:42 36.5 C 71 15 110/68 08/10/21 12:31 36.8 C 71 117/72 08/10/21 12:20 70 93/44 L 08/10/21 12:00 65 95/55 L 08/10/21 11:51 110 H 80/59 L 08/10/21 11:40 90 87/66 L 08/10/21 11:20 106 H 93/70 L 08/10/21 11:00 105 H 130/72 08/10/21 10:40 95 H 102/67 08/10/21 10:20 95 H 102/67 08/10/21 10:00 120 H 104/67 08/10/21 09:40 111 H 96/74 L 08/10/21 09:20 120 H 103/64 08/10/21 09:08 70 101/74 08/10/21 09:00 36.5 C 99 H 08/10/21 07:42 36.5 C 123 H 16 154/93 H Pulse Ox 08/10/21 15:42 98 08/10/21 12:31 08/10/21 12:20 08/10/21 12:00 08/10/21 11:51 08/10/21 11:40 08/10/21 11:20 08/10/21 11:00 08/10/21 10:40 08/10/21 10:20 08/10/21 10:00 08/10/21 09:40 08/10/21 09:20 08/10/21 09:08 08/10/21 09:00 08/10/21 07:42 94 Laboratory Results 08/10/21 05:10 08/10/21 05:10 PG Care Time/CCT Total # of Minutes Spent Total Time Spent with Patient: Total time spent is greater than 50% in coordination of care (as documented) at patient's floor/unit and/or counseling patient: Coding Level of Care Code 75738 Inpt Consult Level 5 Diagnoses S/P total knee arthroplasty Z96.659 Delirium R41.0 Anemia D64.9 ESRD (end stage renal disease) N18.6 Hypokalemia E87.6 Chronic steroid use Hypertension I10 Paroxysmal atrial fibrillation with RVR I48.0 Elevated troponin I level R77.8
[2021-08-10] MEDS: HEPARIN SODIUM/DEXTROSE 25,000 UNITS/500 ML BAG IV SCH ×2 (17:32→19:57)
--- NOTE | 2021-08-10 22:31 | Progress Notes ---
SUBJECTIVE: An 86-year-old gentleman postoperative day 4 from a left knee replacement. Initially co mplicated by quite a bit of initial postoperative confusion. He has now apparently gone into new-ons et AFib with rapid ventricular response. He has been transferred to the medical ICU for medical osmany alexsander of this. They put him on formal anticoagulation. He has no real new complaints. Does not re ally complain much of knee pain. He is still a bit confused. OBJECTIVE: VITAL SIGNS: Temperature 36.8. Vital signs are stable. GENERAL: Shows a pleasant, elderly male. Still appears somewhat confused. EXTREMITIES: Examination of the left leg reveals the dressing to be clean, dry and intact. Some mil [id number] swelling. No significant drainage. NEUROLOGIC: He is neurologically intact. LABORATORY DATA: Hemoglobin 9.6, hematocrit 28.5. ASSESSMENT: An 86-year-old gentleman with multiple medical comorbidities including end-stage renal d isease, now 4 days out from a total knee replacement, now complicated by new-onset atrial fibrillatio n. He has been transferred to the ICU for medical management. His knee pain seems to be controlled. PLAN: 1. DVT prophylaxis includes thigh-high TEDs, SCDs, and now on anticoagulation for his AFib including Coumadin and heparin. 2. PT, OT, weightbear as tolerated. Left total knee protocol. 3. Pain control, doing okay with current pain regimen. 4. Medical management as per the medicine service. He is also getting dialysis. 5. Disposition: He is hoping to go to [facility] for a brief rehab stay and he has got several medic al situations that need to be sorted out first, specifically his new-onset atrial fibrillation. Job ID: [id number]
[2021-08-10] MEDS: SENNA 8.6 MG TAB PO SCH (22:45)
[2021-08-10] MEDS: QUEtiapine FUMARATE 25 MG TABLET PO SCH (22:46)
[2021-08-10] MEDS: PANTOprazole 40 MG TAB PO SCH (22:46)
[2021-08-10] MEDS: METOPROLOL TARTRATE 25 MG TAB PO SCH (22:46)
[2021-08-11 00:29] LABS: Partial Thromboplastin Ratio 3.5
[2021-08-11 00:47] LABS: Partial Thromboplastin Time 96.3 Seconds (21.0-31.0)
[2021-08-11 07:47] LABS: Basophils # (auto) 0.01 K/uL (0-0.2); Basophils % (auto) 0.2 %; Eosinophils # (auto) 0.11 K/uL (0-0.5); Eosinophils % (auto) 2.1 %; Hematocrit (blood only) 26.1 % (42-52); Hemoglobin 8.5 g/dL (14.0-18.0); Immature Granulocytes # (auto) 0.02 K/uL (0.00-0.02); Immature Granulocytes % (auto) 0.4 %; Lymphocytes # (auto) 0.86 K/uL (1.2-3.4); Lymphocytes % (auto) 16.7 %; Mean Corpuscular Hemoglobin 32.6 pg (25-34); Mean Corpuscular Hgb Conc 32.6 g/dL (32-36); Mean Platelet Volume 10.5 fL (7.4-10.4); Monocytes # (auto) 0.44 K/uL (0.11-0.59); Monocytes % (auto) 8.6 %; Nucleated RBC # (auto) 0.02 K/uL (0-0); Nucleated RBC % (auto) 0.4 %; Platelet Count 138 K/uL (130-400); RDW Coefficient of Variation 15.4 % (11.5-14.5); RDW Standard Deviation 55.8 fL (36.4-46.3); Red Blood Count 2.61 M/uL (4.7-6.1); White Blood Count 5.14 K/uL (4.8-10.8)
[2021-08-11 08:19] LABS: INR 4.1 (0.9-1.1); Prothrombin Time 40.1 Seconds (9.0-12.0)
[2021-08-11 08:22] LABS: Partial Thromboplastin Time 83.4 Seconds (21.0-31.0)
[2021-08-11 08:27] LABS: Albumin Globulin Ratio 1.6 (0.9-2); Albumin Level 3.1 gm/dl (3.4-5.0); BUN Creatinine Ratio 7.3 (10-20); Bilirubin,Total 0.3 mg/dl (0.2-1.0); Calcium 7.9 mg/dl (8.5-10.1); Creatinine Clr Calc Pharmacy 10.2 ml/min; Est GFR (African American) 9.3 ml/min; Est GFR (Non-African American) 8.1 ml/min; Magnesium 2.3 mg/dl (1.7-2.4); Potassium 4.2 mmol/L (3.5-5.1); Total Protein 5.1 gm/dl (6.0-8.3)
[2021-08-11] MEDS: PANTOprazole 40 MG TAB PO SCH ×2 (08:29→21:15)
[2021-08-11] MEDS: AMIODARONE 200 MG TAB PO SCH ×2 (08:29→16:37)
[2021-08-11] MEDS: ASCORBIC ACID 500 MG TAB PO SCH ×2 (08:29→16:37)
[2021-08-11] MEDS: ROSUVASTATIN CALCIUM 10 MG TAB PO SCH (08:30)
[2021-08-11] MEDS: CYANOCOBALAMIN (B-12) 500 MCG TABLET PO SCH (08:30)
[2021-08-11] MEDS: METOPROLOL TARTRATE 25 MG TAB PO SCH ×3 (08:30→12:26)
[2021-08-11] MEDS: MAGNESIUM OXIDE 400 MG TAB PO SCH (08:31)
[2021-08-11] MEDS: NEPHROCAPS PO SCH (08:31)
--- NOTE | 2021-08-11 08:33 | Hospitalist Progress Note ---
Date of Service August 11, 2021 Assessment & Plan (1) Paroxysmal atrial fibrillation with RVR: Plan: On the afternoon of 08/09, patient went into new onset atrial fibrillation with RVR -Patient with underlying HTN which is a risk factor. 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 - Needs anticoagulated as ChadVasc2 score=3 - Given ESRD, has been on heparin/Coumadin bridge. Now with supratherapeutic INR of 4.1-- HEPARIN STOPPED. Hold Coumadin today and tomorrow with FU INR on --would recommend resumption of Coumadin if INR <3.0. Would consider 2.0mg. Exact dose needed unknown at this time as new med - Although Eliquis can be considered with renal adjustments, Nephrology requests NO ELIQUIS - TTE: Ventricular systolic function normal with EF of 60 to 65%. Mild MR. Mild TR. No intracardiac thrombus (done prior to him going into new onset A. fib) - Cardiology following-- appreciate assistance. To F/U with Dr. Martínez as an OP - House Physician as [facility] to follow Coumadin (2) Elevated troponin I level: Plan: - 0.10 - 0.11 - 0.16 - 0.14 - No acute ST/T wave changes on EKG. No chest pain - Suspect rate related ischemia (3) Anemia: Plan: - acute on chronic. Do not suspect significant blood loss from surgery (as EBL only 20cc) - anemia likely multifactorial: ERSD and anemia of chronic disease, iron def, B12 def and dilutional - preop hgb 9.4. Post-operatively down to 7.5. - Transfused 1U packed RBC with FU hgb 8.5 - procrit given with Dialysis 08/07 - iron: 14. Venofer given 08/08. Continue oral Iron supplementation - B12 low at 332. IM cyanocobalamin given 08/08. Continue oral Vit B12 supplementation - There is an additional Unit of PRBC's available if needed, hold for now as will effect his fluid status - not highly suspicious for GI bleed but placed on Protonix for GI prophylaxis given addition of Coumadin - was on ASA BID for DVT proph post-op-- since stopped with addition of Coumadin. Prior to Surgery was taking ASA (no h/o CVA or CAD). Hold ASA while on Coumadin until otherwise specified by cardiology - recommend FU CBC in 1 week to further trend H/H--> at discretion of House Physician (4) Hypokalemia: Plan: - Kbath done with dialysis on 08/07 - Remained hypokalemic which could have contributed to his rapid A. fib with RVR. Potassium supplemented gently given his ESRD - normal potassium today (5) S/P total knee arthroplasty: Plan: - Is s/p elective left TKA by Dr. Figueredo on 08/06 - Patient received spinal anesthesia and had an uneventful perioperative course - Postoperative pain controlled. Avoid narcotics as increased delirium with Nucynta given. Pain currently controlled with Ultram - Aspirin 81 mg twice daily given upfront but patient now on Coumadin given A. fib with RVR. In addition, has history of PE/DVT thus would avoid aspirin for prophylaxis given increased risk - Patient lives in a 3 story home with his and plan is for D/C to [facility]. No contraindications to proceed with D/C at this time. D/W Cardiology and Nephrology who also both agree (6) Delirium: Plan: - Patient having visual hallucinations, is confused to place and situation and somewhat agitated. Days/nights mixed up and now. NOT COMBATIVE - CT of the head showed concern for acute to subacute lacunar infarct - MRI done showing no evidence of acute infarct - VBG--> no hypercapnia - TSH normal at 1.06 - Ammonia normal at 18 - There is a question of UTI based on his urinalysis. Completed 3 days of Rocephin. Urine culture has since come back showing a contaminated specimen. Despite this, completed full course of antibiotics for uncomplicated UTI - Hallucinations likely related to acute hospital acquired delirium in the setting of postsurgical state. UTI could be contributing. - Seroquel added given increased agitation-- helping (7) ESRD (end stage renal disease): Plan: - follows [facility]. Receives dialysis MWF in [place] - Nephrology following for fluid mgmt - Dialysis done 08/07 and 08/10 - has AVF- not mature. Using Temporary Tunneled line - [facility] to provide his dialysis on , , Tuesday schedule (8) Chronic steroid use: Plan: - takes 5mg chronically for PMR - did not receive Steroid challenge perioperative. Did get decadron but this has no mineralocorticoid affect - Solu-cortef given 08/07 with oral taper to start 08/08. continue taper to 5mg dose (9) Hypertension: Plan: -Patient with marginal hypotension during episode of atrial fibrillation with RVR. Procardia stopped -Coreg transitioned to metoprolol (for added heart rate control with less effect on the blood pressure) -BP currently 111/66 with a HR of 61. Plan: Discharge to [facility] canceled 08/09 given new onset A. fib with RVR Patient has since converted to normal sinus rhythm INR Supratherapeutic (4.1) and heparin stopped Coumadin: hold today and tomorrow with FU INR on . Further dosing per House Physician Placed on Protonix for GI prophylaxis Recommend FU CBC 1 week ASA stopped with addition of Coumadin Procardia Stopped (d/t low BP) Coreg changed to Metoprolol (less effect on BP and more HR control) now on Amiodarone FU with Cardiology Thank you for allowing us to participate in the care of this patient. Okay to discharge to [facility] todaydid make primary team aware of this Admission and Anticipated Discharge Date Admission Date: August 07, 2021 Subjective Patient remains in a NSR. Rate currently in the low 60's (prior to receiving any BB this am) Review of Systems Review of Systems: All systems reviewed and are unremarkable except as noted in HPI and below Denies fevers, chills, headache, nasal congestion, sore throat, cough, chest pain, shortness of breath, palpitations, orthopnea, PND, abdominal pain, nausea, vomiting, diarrhea, constipation, dysuria, hematuria, frequency, back pain, joint pain or swelling, easy bruising or bleeding, skin lesions or rashes. Physical Exam Physical Exam: General: Resting comfortably in his hospital bed. NAD. HEENT: Head is AT/NC. Buccal mucosa is moist and pink Neck: No JVD. Negative hepatojugular reflex Cardiac: Currently in a NSR with CVR- 60's Lungs: CTA without W/R/R Abdomen: Normoactive X4. Soft and nontender in all quadrants. Extremities: Bruit and vibration to left AV fistula. LEft knee with veronica wrap. Dry and intact. Peripheral pulses bounding and symmetrical bilaterally. Neuro: A&O X4. Cranial nerves II through XII are grossly intact. No focal neuro deficits Skin: No obvious skin lesions or rashes Psych: Appropriate affect. Pleasant and cooperative Results & Data Results & Data ([facility]) Vital Signs (Past 12 Hours) Vital Signs Temp Pulse Pulse Resp BP Pulse Ox 08/11/21 07:46 36.8 C 63 18 127/72 98 08/11/21 04:20 36.7 C 61 18 111/66 99 08/10/21 23:00 70 08/10/21 22:37 37.0 C 69 17 136/70 96 Laboratory Results 08/11/21 07:30 08/11/21 07:30 INR 4.1 (0.9-1.1) H 08/11/21 07:30 INR Cancelled 08/11/21 07:30 PG Care Time/CCT Total # of Minutes Spent Total Time Spent with Patient: Total time spent is greater than 50% in coordination of care (as documented) at patient's floor/unit and/or counseling patient: Coding Level of Care Code 59940 Inpt Consult Level 5 Diagnoses Paroxysmal atrial fibrillation with RVR I48.0 Elevated troponin I level R77.8 Anemia D64.9 Hypokalemia E87.6 S/P total knee arthroplasty Z96.659 Delirium R41.0 ESRD (end stage renal disease) N18.6 Chronic steroid use Hypertension I10
[2021-08-11] MEDS: predniSONE 10 MG TABLET PO SCH (08:35)
[2021-08-11] MEDS: DOCUSATE SODIUM 100 MG CAP PO SCH ×2 (08:36→23:25)
[2021-08-11] MEDS: CALCIUM ACETATE 667 MG CAP/TAB PO SCH ×3 (08:36→16:37)
[2021-08-11] MEDS: ACETAMINOPHEN 500 MG TAB PO SCH ×3 (08:38→23:24)
--- NOTE | 2021-08-11 12:39 | Electrocardiogram Report ---
Test Reason : Blood Pressure : / mmHG Vent. Rate : 063 BPM Atrial Rate : 063 BPM P-R Int : 172 ms QRS Dur : 096 ms QT Int : 450 ms P-R-T Axes : 003 004 054 degrees QTc Int : 460 ms Normal sinus rhythm Normal ECG When compared with ECG of 10-AUG-2021 12:14, Premature supraventricular complexes are no longer Present Confirmed by Chris Bradshaw ([id number]) on 08/11/2021 12:38:40 PM Referred By: Black Figueredo Confirmed By:Chris Bradshaw
--- NOTE | 2021-08-11 13:21 | Cardiology Progress Note ---
Date of Service August 11, 2021 Assessment & Plan (1) Paroxysmal atrial fibrillation with RVR: (2) S/P total knee arthroplasty: (3) ESRD (end stage renal disease): (4) Elevated troponin I level: Plan: 86-year-old patient admitted for elective knee surgery developing postoperative atrial fibrillation with rapid ventricular response. He converted to NSR yesterday with IV then oral amiodarone. Remains in NSR overnight. Reduce amiodarone to 200 mg BID on discharge. Carvedilol stopped due to borderline hypotension with dialysis. Metoprolol 25 mg BID initiated. Continue on discharge. Started on Coumadin for anticoagulation. Will need close f/u with PT/INR on discharge. INR supratherapeutic today. Would hold dose. IV heparin discontinued. He follows with Dr. Martínez of [facility]. Recommend 2-4 week follow up. Patient will be contacted by scheduling team. Stable for discharge today from cardiac standpoint. Case discussed with Dr. Sy. Admission and Anticipated Discharge Date Admission Date: August 07, 2021 Supervising Physician Co-Signing Physician Notes Patient seen and examined at bedside. Converted to sinus rhythm yesterday without recurrent atrial fibrillation. Denies chest pain or palpitations. Offers no complaints. PE: VSS. NAD, AAOx3. Heart: Regular rhythm, no murmur. Lungs: clear B/L, no R/R/W. Ext: No edema. A/P: Agree with above PA-C history, physical exam, assessment and plan. Continue oral amiodarone 200 mg twice daily for 1 week then reduce dose to 200 mg once daily. Carvedilol transition to metoprolol during hospitalization due to intermittent hypotension. Warfarin for goal INR of 2.0-3.0. No further inpatient cardiology testing or intervention at this time. Follow-up with [facility] cardiology in the outpatient setting. Subjective Patient feeling well, resting in bed. No chest pain, dyspnea, or palpitations. Anticipates discharge today to [facility]. No recurrent atrial fibrillation overnight. Review of Systems Review of Systems: All systems reviewed & are unremarkable except as noted in HPI & below Physical Exam Constitutional: well developed and well nourished; no acute distress Respiratory: normal respiratory effort; no respiratory distress and no labored breathing Auscultation: lungs clear to auscultation bilaterally; no crackles, no rales, no rhonchi and no wheezes Cardiovascular: Rate/Rhythm: regular rate and regular rhythm Heart Sounds: normal S1 and normal S2; no murmur Vessels: radial pulses present; no JVD and no carotid bruit Gastrointestinal (Abdomen): Inspection/Auscultation: abdomen normal to inspection and normal bowel sounds; abdomen not distended Percussion/Palpation: abdomen soft; abdomen nontender, no guarding and abdomen not rigid Neurologic: CN's II-XI intact bilaterally and moves all extremities; no focal motor deficits Motor/Sensory: no tremor Psychiatric: A+Ox3, euthymic affect Results & Data ([facility]) Vital Signs (Past 12 Hours) Vital Signs Temp Pulse Resp BP Pulse Ox 08/11/21 11:08 36.8 C 62 17 132/69 98 08/11/21 07:46 36.8 C 63 18 127/72 98 08/11/21 04:20 36.7 C 61 18 111/66 99 Laboratory Results 08/11/21 08/11/21 08/11/21 Range/Units 07:30 07:30 07:30 WBC (4.8-10.8) K/uL RBC (4.7-6.1) M/uL Hgb (14.0-18.0) g/dL Hct (42-52) % MCV (80-100) fL MCH (25-34) pg MCHC (32-36) g/dL RDW Std Deviation (36.4-46.3) fL RDW Coeff of Kate (11.5-14.5) % Plt Count (130-400) K/uL MPV (7.4-10.4) fL Immature Gran % (Auto) % Neut % (Auto) % Lymph % (Auto) % Weld % (Auto) % Eos % (Auto) % Baso % (Auto) % Neut # (Auto) (1.4-6.5) K/uL Lymph # (Auto) (1.2-3.4) K/uL Weld # (Auto) (0.11-0.59) K/uL Eos # (Auto) (0-0.5) K/uL Baso # (Auto) (0-0.2) K/uL Immature Gran # (Auto) (0.00-0.02) K/uL Absolute Nucleated RBC (0-0) K/uL Nucleated RBC % (auto) % PT 40.1 H Cancelled INR 4.1 H Cancelled APTT 83.4 H* (21.0-31.0) Seconds PTT Ratio 3.0 Sodium 137 (136-145) mmol/L Potassium 4.2 (3.5-5.1) mmol/L Chloride 97 L (98-107) mmol/L Carbon Dioxide 31 (21-32) mmol/L Anion Gap 9 (3-11) BUN 43 H D (6-23) mg/dl Creatinine 5.89 H* D (0.6-1.4) mg/dl Est Cr Clr Drug Dosing 10.2 ml/min Est GFR ( Amer) 9.3 ml/min Est GFR (Non-Af Amer) 8.1 ml/min BUN/Creatinine Ratio 7.3 L (10-20) Glucose 90 (70-99(Fasting)) mg/dl Calcium 7.9 L (8.5-10.1) mg/dl Magnesium 2.3 (1.7-2.4) mg/dl Total Bilirubin 0.3 (0.2-1.0) mg/dl AST 22 (13-39) U/L ALT 6 L (7-52) U/L Alkaline Phosphatase 58 (34-104) U/L Total Protein 5.1 L (6.0-8.3) gm/dl Albumin 3.1 L (3.4-5.0) gm/dl Globulin 2.0 L (2.5-4.0) gm/dl Albumin/Globulin Ratio 1.6 (0.9-2) 08/11/21 08/10/21 08/10/21 Range/Units 07:30 23:42 14:40 WBC 5.14 (4.8-10.8) K/uL RBC 2.61 L (4.7-6.1) M/uL Hgb 8.5 L (14.0-18.0) g/dL Hct 26.1 L (42-52) % MCV 100.0 (80-100) fL MCH 32.6 (25-34) pg MCHC 32.6 (32-36) g/dL RDW Std Deviation 55.8 H (36.4-46.3) fL RDW Coeff of Kate 15.4 H (11.5-14.5) % Plt Count 138 (130-400) K/uL MPV 10.5 H (7.4-10.4) fL Immature Gran % (Auto) 0.4 % Neut % (Auto) 72.0 % Lymph % (Auto) 16.7 % Weld % (Auto) 8.6 % Eos % (Auto) 2.1 % Baso % (Auto) 0.2 % Neut # (Auto) 3.70 (1.4-6.5) K/uL Lymph # (Auto) 0.86 L (1.2-3.4) K/uL Weld # (Auto) 0.44 (0.11-0.59) K/uL Eos # (Auto) 0.11 (0-0.5) K/uL Baso # (Auto) 0.01 (0-0.2) K/uL Immature Gran # (Auto) 0.02 (0.00-0.02) K/uL Absolute Nucleated RBC 0.02 H (0-0) K/uL Nucleated RBC % (auto) 0.4 % PT INR APTT 96.3 H* 93.1 H* (21.0-31.0) Seconds PTT Ratio 3.5 3.4 Sodium (136-145) mmol/L Potassium (3.5-5.1) mmol/L Chloride (98-107) mmol/L Carbon Dioxide (21-32) mmol/L Anion Gap (3-11) BUN (6-23) mg/dl Creatinine (0.6-1.4) mg/dl Est Cr Clr Drug Dosing ml/min Est GFR ( Amer) ml/min Est GFR (Non-Af Amer) ml/min BUN/Creatinine Ratio (10-20) Glucose (70-99(Fasting)) mg/dl Calcium (8.5-10.1) mg/dl Magnesium (1.7-2.4) mg/dl Total Bilirubin (0.2-1.0) mg/dl AST (13-39) U/L ALT (7-52) U/L Alkaline Phosphatase (34-104) U/L Total Protein (6.0-8.3) gm/dl Albumin (3.4-5.0) gm/dl Globulin (2.5-4.0) gm/dl Albumin/Globulin Ratio (0.9-2) Diagnostic Findings Telemetry reviewed: NSR 60's. No recurrent atrial fibrillation in nearly 24 hours. EKG today demonstrating - Normal sinus rhythm Normal ECG When compared with ECG of 10-AUG-2021 12:14, Premature supraventricular complexes are no longer Present QT/QTc 450/460 ms Medications Administered Current Inpatient Medications Acetaminophen (Acetaminophen 500 Mg Tab) 1,000 mg PO Q8 [facility] Stop: 09/05/21 16:29 Last Admin: 08/11/21 08:38 Dose: 1,000 mg Documented by: Al Hydrox/Mg Hydrox/Simethicone (Aluminum/Magnesium Susp 30 Ml Udc) 15 ml PO Q4H PRN PRN Reason: Heartburn Stop: 09/05/21 14:27 Amiodarone HCl (Amiodarone 200 Mg Tab) 400 mg PO BIDM [facility] Stop: 09/09/21 07:59 Last Admin: 08/11/21 08:29 Dose: 400 mg Documented by: Ascorbic Acid (Ascorbic Acid 500 Mg Tab) 500 mg PO BIDM [facility] Stop: 09/05/21 16:59 Last Admin: 08/11/21 08:29 Dose: 500 mg Documented by: Bisacodyl (Bisacodyl 10 Mg Supp) 10 mg MD DAILY PRN PRN Reason: Constipation Stop: 09/05/21 14:27 Calcium Acetate (Calcium Acetate 667 Mg Cap/Tab) 667 mg PO AC [facility] Stop: 09/05/21 16:29 Last Admin: 08/11/21 08:36 Dose: 667 mg Documented by: Calcium Acetate (Calcium Acetate 667 Mg Cap/Tab) 667 mg PO PRN PRN PRN Reason: WITH SNACKS Stop: 09/05/21 16:05 Cyanocobalamin (Cyanocobalamin (B-12) 500 Mcg Tablet) 1,000 mcg PO QAM [facility] Stop: 09/08/21 08:59 Last Admin: 08/11/21 08:30 Dose: 1,000 mcg Documented by: Docusate Sodium (Docusate Sodium 100 Mg Cap) 100 mg PO BID [facility] Stop: 09/05/21 20:59 Last Admin: 08/11/21 08:36 Dose: Not Given Documented by: Heparin Sodium/Dextrose (Heparin Sodium/Dextrose) 25,000 units in 500 mls @ 0 mls/hr IV .Q0M MIGDALIA; Protocol Stop: 09/08/21 15:12 Last Titration: 08/11/21 08:26 Dose: Infused Documented by: Magnesium Hydroxide (Magnesium Hydroxide Susp 30 Ml Udc) 30 ml PO Q6H PRN PRN Reason: Constipation Stop: 09/05/21 14:27 Last Admin: 08/10/21 16:34 Dose: 30 ml Documented by: Magnesium Oxide (Magnesium Oxide 400 Mg Tab) [facility] Stop: 09/08/21 08:59 Last Admin: 08/11/21 08:31 Dose: 400 mg Documented by: Metoprolol Tartrate (Metoprolol Tartrate 25 Mg Tab) 25 mg PO BID [facility] Stop: 09/09/21 20:59 Last Admin: 08/11/21 12:26 Dose: Not Given Documented by: Naloxone HCl (Naloxone Hcl 0.4 Mg/1 Ml Vial/Carp) 0.1 mg IV Q5M PRN PRN Reason: Oversedation/Resp Depression Stop: 09/05/21 14:27 Ondansetron HCl (Ondansetron Inj 2 Mg/Ml 2 Ml Vial) 4 mg IV Q6H PRN PRN Reason: Nausea And Vomiting Stop: 09/05/21 14:27 Pantoprazole Sodium (Pantoprazole 40 Mg Tab) 40 mg PO BID [facility] Stop: 09/09/21 20:59 Last Admin: 08/11/21 08:29 Dose: 40 mg Documented by: Prednisone (Prednisone 10 Mg Tablet) 30 mg PO DAILY [facility] Stop: 09/09/21 08:59 Last Admin: 08/11/21 08:35 Dose: 30 mg Documented by: Quetiapine Fumarate (Quetiapine Fumarate 25 Mg Tablet) 25 mg PO [facility] Stop: 09/08/21 20:59 Last Admin: 08/10/21 22:46 Dose: 25 mg Documented by: Rosuvastatin Calcium (Rosuvastatin Calcium 10 Mg Tab) 20 mg PO [facility] Stop: 09/10/21 08:59 Last Admin: 08/11/21 08:30 Dose: 20 mg Documented by: Sennosides (Senna 8.6 Mg Tab) 17.2 mg PO [facility] Stop: 09/05/21 20:59 Last Admin: 08/10/21 22:45 Dose: Not Given Documented by: Tamsulosin HCl (Tamsulosin Hcl 0.4 Mg Cap) 0.4 mg PO QAM PRN PRN Reason: UNABLE to void Stop: 09/05/21 14:27 Tramadol HCl (Tramadol Hcl 50 Mg Tablet) 50 mg PO Q4H PRN PRN Reason: Pain Stop: 09/06/21 15:26 Last Admin: 08/08/21 15:40 Dose: 50 mg Documented by: Vitamin B Complex/Folic Acid (Nephrocaps) 1 cap PO QAM [facility] Stop: 09/10/21 08:59 Last Admin: 08/11/21 08:31 Dose: 1 cap Documented by:
[2021-08-11 14:20] LABS: Hematocrit (blood only) 25.6 % (42-52); Hemoglobin 8.5 g/dL (14.0-18.0)
--- NOTE | 2021-08-11 20:59 | Progress Notes ---
DATE OF SERVICE: 08/11/2021. SUBJECTIVE: An 86-year-old gentleman with multiple medical comorbidities, now 5 days out from a left total knee replacement. He is going to be discharged to [facility] and then went into AF ib. He has been managed medically. He was put on heparin and Coumadin. He has no new complaints. The confusion really seems to have resolved. He denies any significant knee pain today. OBJECTIVE: VITAL SIGNS: Temperature 36.8. Vital signs are stable. PHYSICAL EXAMINATION: GENERAL: Shows a pleasant, elderly male. He is lying in bed. Looks to be pretty much at baseline. EXTREMITIES: Examination of the left leg reveals the dressing to be clean, dry and intact. Leg is w ell aligned. Some moderate swelling. No detectable drainage. He is neurologically intact. LABORATORY DATA: Hemoglobin 8.5, hematocrit 25.6. INR is 4.1. ASSESSMENT: An 86-year-old gentleman 5 days out from a left knee replacement complicated by confusio n and new-onset atrial fibrillation. His pain seems to be controlled. This is a very difficult situ ation with him being immediately postoperative and requiring anticoagulation. I think he is at high risk for complications such as bleeding into his knee, which could be a significant setback for him a nd harmful medically as well. I will leave it up to the medicine service whether they think it is es sential, but I would recommend trying to avoid anticoagulation if at all possible. I think it is goi ng to be hard to manage his INR with his end-stage renal disease unless there is some type of predict able anticoagulant that he can use. PLAN: 1. DVT prophylaxis includes thigh-high TEDs, SCDs, and anticoagulation per the medicine service. Al though I would recommend caution due to his recent surgery. 2. PT, OT, weightbear as tolerated. 3. Medical management as per the medicine service. 4. Confusion, seems to be resolved. He is not having much pain. I would limit his narcotics. 5. Pain control, doing pretty well with current pain regimen. 6. Disposition: He is hoping to be discharged to [facility]. They had a bed for him today, but I wa s not aware of this until the time had passed. Hopefully, we can get him there tomorrow. He is cert ainly okay from the orthopedic standpoint. Job ID: [id number]
[2021-08-11] MEDS: QUEtiapine FUMARATE 25 MG TABLET PO SCH (21:15)
[2021-08-11] MEDS: SENNA 8.6 MG TAB PO SCH (23:25)
[2021-08-12] MEDS: ACETAMINOPHEN 500 MG TAB PO SCH (06:32)
[2021-08-12 07:55] LABS: Basophils # (auto) 0.01 K/uL (0-0.2); Basophils % (auto) 0.2 %; Eosinophils # (auto) 0.13 K/uL (0-0.5); Eosinophils % (auto) 2.2 %; Hematocrit (blood only) 25.8 % (42-52); Hemoglobin 8.6 g/dL (14.0-18.0); Immature Granulocytes # (auto) 0.02 K/uL (0.00-0.02); Immature Granulocytes % (auto) 0.3 %; Lymphocytes # (auto) 1.34 K/uL (1.2-3.4); Lymphocytes % (auto) 22.5 %; Mean Corpuscular Hemoglobin 33.3 pg (25-34); Mean Platelet Volume 10.8 fL (7.4-10.4); Monocytes # (auto) 0.38 K/uL (0.11-0.59); Monocytes % (auto) 6.4 %; Neutrophils # (auto) 4.07 K/uL (1.4-6.5); Neutrophils % (auto) 68.4 %; Nucleated RBC # (auto) 0.02 K/uL (0-0); Nucleated RBC % (auto) 0.4 %; Platelet Count 161 K/uL (130-400); RDW Coefficient of Variation 15.2 % (11.5-14.5); Red Blood Count 2.58 M/uL (4.7-6.1); White Blood Count 5.95 K/uL (4.8-10.8)
[2021-08-12 08:15] LABS: Prothrombin Time 69.2 Seconds (9.0-12.0)
[2021-08-12 08:20] LABS: Mean Corpuscular Hgb Conc 33.3 g/dL (32-36)
[2021-08-12 08:23] LABS: BUN Creatinine Ratio 8.9 (10-20); Calcium 7.9 mg/dl (8.5-10.1); Creatinine Clr Calc Pharmacy 8.3 ml/min; Est GFR (African American) 7.2 ml/min; Est GFR (Non-African American) 6.2 ml/min; Potassium 4.5 mmol/L (3.5-5.1)
[2021-08-12 08:26] LABS: INR 7.2 (0.9-1.1)
[2021-08-12] MEDS: METOPROLOL TARTRATE 25 MG TAB PO SCH (09:28)
[2021-08-12] MEDS: AMIODARONE 200 MG TAB PO SCH (09:29)
[2021-08-12] MEDS: CALCIUM ACETATE 667 MG CAP/TAB PO SCH (09:29)
[2021-08-12] MEDS: ASCORBIC ACID 500 MG TAB PO SCH (09:29)
[2021-08-12] MEDS: predniSONE 10 MG TABLET PO SCH (09:29)
[2021-08-12] MEDS: CYANOCOBALAMIN (B-12) 500 MCG TABLET PO SCH (09:29)
[2021-08-12] MEDS: NEPHROCAPS PO SCH (09:30)
[2021-08-12] MEDS: PANTOprazole 40 MG TAB PO SCH (09:30)
[2021-08-12] MEDS: MAGNESIUM OXIDE 400 MG TAB PO SCH (09:30)
[2021-08-12] MEDS: ROSUVASTATIN CALCIUM 10 MG TAB PO SCH (09:30)
--- NOTE | 2021-08-12 11:11 | Hospitalist Progress Note ---
Date of Service August 12, 2021 Assessment & Plan (1) Paroxysmal atrial fibrillation with RVR: Plan: On the afternoon of 08/09, patient went into new onset atrial fibrillation with RVR -Patient with underlying HTN which is a risk factor. 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 - Needs anticoagulated as ChadVasc2 score=3 - Given ESRD, has been on heparin/Coumadin bridge. Heparin stopped on 08/11 given INR of 4.1-- no Coumadin given 08/11 --would recommend resumption of Coumadin once INR <3.0. Would consider 2.0mg. Exact dose needed unknown at this time as new med - Although Eliquis can be considered with renal adjustments, Nephrology requests NO ELIQUIS - TTE: Ventricular systolic function normal with EF of 60 to 65%. Mild MR. Mild TR. No intracardiac thrombus (done prior to him going into new onset A. fib) - Cardiology following-- appreciate assistance. To F/U with Dr. Martínez as an OP - House Physician as [facility] to follow Coumadin. Recommend referral to [facility] ACT clinic upon D/C (2) Supratherapeutic INR: Plan: - Coumdain 5mg given on 08/09 and 08/10. - INR on 08/11 supratherapeutic at 4.1. NO COUMADIN GIVEN ON 08/11 - INR today (08/12) 7.2 but NO BLEEDING - likely combination of amiodarone and ESRD - NO COUMADIN today or tomorrow. Recommend FU protime/inr on Tuesday with Subsequent Coumadin dosing and labs at discretion of House Physician (3) Elevated troponin I level: Plan: - 0.10 - 0.11 - 0.16 - 0.14 - No acute ST/T wave changes on EKG. No chest pain - Suspect rate related ischemia (4) Anemia: Plan: - acute on chronic. Do not suspect significant blood loss from surgery (as EBL only 20cc) - anemia likely multifactorial: ERSD and anemia of chronic disease, iron def, B12 def and dilutional - preop hgb 9.4. Post-operatively down to 7.5. - Transfused 1U packed RBC with FU hgb 8.5. H/H remains stable - procrit given with Dialysis 08/07 - iron: 14. Venofer given 08/08. Continue oral Iron supplementation - B12 low at 332. IM cyanocobalamin given 08/08. Continue oral Vit B12 supplementation - There is an additional Unit of PRBC's available if needed, hold for now as will effect his fluid status. H/H stable, didn't require 2nd unit - not highly suspicious for GI bleed but placed on Protonix for GI prophylaxis given addition of Coumadin - was on ASA BID for DVT proph post-op-- since stopped with addition of Coumadin. Prior to Surgery was taking ASA (no h/o CVA or CAD). Hold ASA while on Coumadin until otherwise specified by cardiology - recommend FU CBC in 1 week to further trend H/H--> at discretion of House Physician (5) Hypokalemia: Plan: - Kbath done with dialysis on 08/07 - Remained hypokalemic which could have contributed to his rapid A. fib with RVR. Potassium supplemented gently given his ESRD - normal potassium today (6) S/P total knee arthroplasty: Plan: - Is s/p elective left TKA by Dr. Figueredo on 08/06 - Patient received spinal anesthesia and had an uneventful perioperative course - Postoperative pain controlled. Avoid narcotics as increased delirium with Nucynta given. Pain currently controlled with Ultram - Aspirin 81 mg twice daily given upfront but patient now on Coumadin given A. fib with RVR. In addition, has history of PE/DVT thus would avoid aspirin for prophylaxis given increased risk - Patient lives in a 3 story home with his and plan is for D/C to [facility]. No contraindications to proceed with D/C at this time. D/W Cardiology and Nephrology who also both agree (7) Delirium: Plan: - Patient having visual hallucinations, is confused to place and situation and somewhat agitated. Days/nights mixed up and now. NOT COMBATIVE - CT of the head showed concern for acute to subacute lacunar infarct - MRI done showing no evidence of acute infarct - VBG--> no hypercapnia - TSH normal at 1.06 - Ammonia normal at 18 - There is a question of UTI based on his urinalysis. Completed 3 days of Rocephin. Urine culture has since come back showing a contaminated specimen. Despite this, completed full course of antibiotics for uncomplicated UTI - Hallucinations likely related to acute hospital acquired delirium in the setting of postsurgical state. UTI could be contributing. - Seroquel added given increased agitation-- helping (8) ESRD (end stage renal disease): Plan: - follows [facility] Nephrology. Receives dialysis MWF in [place] - Nephrology following for fluid mgmt - Dialysis done 08/07 and 08/10 - has AVF- not mature. Using Temporary Tunneled line - [facility] to provide his dialysis on , , Tuesday schedule (9) Chronic steroid use: Plan: - takes 5mg chronically for PMR - did not receive Steroid challenge perioperative. Did get decadron but this has no mineralocorticoid affect - Solu-cortef given 08/07 with oral taper to start 08/08. continue taper to 5mg dose (10) Hypertension: Plan: -Patient with marginal hypotension during episode of atrial fibrillation with RVR. Procardia stopped -Coreg transitioned to metoprolol (for added heart rate control with less effect on the blood pressure) -BP currently 173/78 but this was prior to his morning dose of metoprolol being given. Would advise monitoring of this as BP has been marginally low. Procardia has since been stopped. May need resumption of this at discretion of house physician Plan: Thank you for allowing us to participate in the care of this patient. [facility] Admission and Anticipated Discharge Date Admission Date: August 07, 2021 Subjective Patient feeling well, resting in bed. No chest pain, dyspnea, or palpitations. Anticipates discharge today to [facility]. Has remained in normal sinus rhythm since conversion. Blood pressure slightly elevated today but that was prior to his morning dose of metoprolol. Did not receive Coumadin last night. INR yesterday was 4.1. Up to 7.2 today. H/H stable. No bleeding Review of Systems Review of Systems: All systems reviewed and are unremarkable except as noted in HPI and below Denies fevers, chills, headache, nasal congestion, sore throat, cough, chest pain, shortness of breath, palpitations, orthopnea, PND, abdominal pain, nausea, vomiting, diarrhea, constipation, dysuria, hematuria, frequency, back pain, joint pain or swelling, easy bruising or bleeding, skin lesions or rashes. Physical Exam Physical Exam: General: Resting comfortably in his hospital bed. NAD. HEENT: Head is AT/NC. Buccal mucosa is moist and pink Neck: No JVD. Negative hepatojugular reflex Cardiac: Currently in a NSR with CVR- 60's Lungs: CTA without W/R/R Abdomen: Normoactive X4. Soft and nontender in all quadrants. Extremities: Bruit and vibration to left AV fistula. LEft knee with veronica wrap. Dry and intact. Peripheral pulses bounding and symmetrical bilaterally. Neuro: A&O X4. Cranial nerves II through XII are grossly intact. No focal neuro deficits Skin: No obvious skin lesions or rashes Psych: Appropriate affect. Pleasant and cooperative Results & Data Results & Data ([facility]) Vital Signs (Past 12 Hours) Vital Signs Temp Pulse Resp BP Pulse Ox 08/12/21 07:51 36.6 C 65 18 173/78 H 94 08/12/21 03:28 36.5 C 61 18 135/68 99 08/11/21 23:36 36.5 C 65 18 191/81 H 97 PG Care Time/CCT Total # of Minutes Spent Total Time Spent with Patient: Total time spent is greater than 50% in coordination of care (as documented) at patient's floor/unit and/or counseling patient: Coding Level of Care Code 11833 Inpt Consult Level 3 Diagnoses Paroxysmal atrial fibrillation with RVR I48.0 Elevated troponin I level R77.8 Anemia D64.9 Hypokalemia E87.6 S/P total knee arthroplasty Z96.659 Delirium R41.0 ESRD (end stage renal disease) N18.6 Chronic steroid use Hypertension I10 Supratherapeutic INR R79.1
--- NOTE | 2021-08-12 14:51 | Nephrology Progress Note ---
Date of Service August 12, 2021 Assessment & Plan (1) ESRD (end stage renal disease): Plan: for routine HD tomorrow via [facility]; chemistries/ vol status ok >next HD here or [facility] 08/13 -at d/c continue renal vitamin (2) Paroxysmal atrial fibrillation with RVR: Plan: new issue for him; on coumadin; cardiology following; amiodarone started >>>HE is on high dose daily prednisone >> so combination w/ coumadin will need to be monitored closely d/t bleeding risk (3) Anemia: Plan: -gets IV iron w/ HD > no indication for po iron -JESE as indicated w/ HD -s/p 1 unit pRBCthis admission Admission and Anticipated Discharge Date Admission Date: August 07, 2021 Subjective seen on rounds this am; no change in confusion; denies sob, uncontrolled pain; for transfer to inpt rehab today Review of Systems Review of Systems: All systems reviewed & are unremarkable except as noted in Subjective Physical Exam Constitutional: well developed and well nourished Eyes: EOM intact bilaterally ENMT: Ears: no external ear abnormality Nose: no external nose abnormality Mouth: + dry oral mucous membranes Neck: no nuchal rigidity Respiratory: normal respiratory effort Auscultation: + diminished lung sounds Cardiovascular: Rate/Rhythm: regular rate and regular rhythm Extremities: no edema (TEDS in place) Gastrointestinal (Abdomen): Inspection/Auscultation: normal bowel sounds Percussion/Palpation: abdomen soft; abdomen nontender Musculoskeletal: Extremities: strength 5/5 throughout Skin: no rashes, warm and dry Psychiatric: Orientation: oriented to person, oriented to place (forgets he's already bathed today) and cooperative Results & Data ([facility]) Vital Signs (Past 12 Hours) Vital Signs Temp Pulse Pulse Pulse Resp BP Pulse Ox 08/12/21 13:52 36.7 C 54 L 64 71 19 124/68 96 08/12/21 12:00 36.7 C 54 L 19 124/68 96 08/12/21 07:51 36.6 C 65 18 173/78 H 94 08/12/21 03:28 36.5 C 61 18 135/68 99 Laboratory Results 08/12/21 07:39 08/12/21 07:39
--- NOTE | 2021-08-15 06:32 | Discharge Summary ---
Date of Service August 15, 2021 Discharge Data Consultations 08/06/21 14:28 Consult Hospitalist Routine 08/06/21 15:19 Consult Nephrology Routine 08/09/21 15:13 Consult Cardiology Routine Procedures Performed Operation Date: 08/06/21 10:55 Actual Procedures p Left Total Knee Replacement(Left) - Black Figueredo MD Hospital Course (1) Status post total left knee replacement: This patient is a 86 year old male admitted on 08/06/21 and underwent total knee arthroplasty. He tolerated the procedure well and there were no complications. Transferred to the PACU post op and later to the orthopedic floor for further care. He was given ancef for antibiotic prophylaxis. He was also given CAROLE stockings, SCDs, and aspirin for DVT prophylaxis. On POD #1 he had dialysis and developed some delirium after this. Narcotic medications were held. He did have a brain MRI done which was negative for acute infarct. The delirium did improve prior to discharge. Hemoglobin, hematocrit, and vital signs were monitored during his hospital stay. He did have some post op anemia and received 1 unit of PRBC's as well as procrit. He did develop new onset atrial fibrillation and converted to normal sinus rhythm with IV and oral amiodarone. He was started on IV heparin and coumadin. The heparin was discontinued prior to discharge. He was followed by the hospitalist, nephrology, and cardiology throughout his hospital stay. By post op day #5 the patient was tolerating a regular diet, pain was reasonably controlled with oral pain medicine, and he was participating in physical therapy. On post op day #5 the patient was discharged to a rehab facility. He was given printed discharge instructions including the recommendations for his coumadin dosing, dialysis, and cardiology follow up. Continue physical therapy, weight bearing as tolerated. Continue CAROLE stockings. Follow up approximately 2 weeks post op or sooner if there are problems or concerns. Coding Level of Care Code None Diagnoses Status post total left knee replacement Z96.652
== END 2021-08-12 14:40 | DRG 469 ==
LOC: ASU 08:29 → 3W 08:29 → 2N 08-08 10:47 → 2S 08-09 14:32